=== PATIENT | male | born 1975 | race Caucasian/White ===

== ENCOUNTER 2016-10-27 20:31 | Inpatient (IN) | payer OTHER ==
[2016-10-27 20:42] VITALS: BMI 38.4
[2016-10-27] MEDS ORDERED: METOCLOPRAMIDE HCL INJECTION 10 MG/2 ML VIAL IVPB ONE (21:33)
[2016-10-27] MEDS ORDERED: SODIUM CHLORIDE 1,000 ML IV STA (21:33)
[2016-10-27] MEDS ORDERED: morphine CARPU-JECT 4 MG/1 ML DISP.SYRIN IVPUSH ONE (21:33)
[2016-10-27] MEDS ORDERED: morphine CARPU-JECT 4 MG/1 ML DISP.SYRIN ONE (21:40)
[2016-10-27] MEDS ORDERED: METOCLOPRAMIDE HCL INJECTION 10 MG/2 ML VIAL ONE (21:41)
[2016-10-27 22:35] LABS: BASOPHIL 0.5 % (0-2.0); EOSINOPHIL 0.5 % (0-4.5); MCH 30.5 pg (25.7-33.7); MCHC 33.3 g/dl (32.0-35.9); MEAN CELL VOLUME 91.7 fl (80-96); MEAN PLT VOLUME 8.7 fl (7.5-11.1); NEUTROPHILS 65.8 % (42.8-82.8); RDW 15.6 % (11.9-15.9); WHITE BLOOD COUNT 11.4 K/mm3 (4.0-10.0)
[2016-10-27 23:11] LABS: PLATELET COUNT 218 K/MM3 (134-434); PLATELET ESTIMATE ADEQUATE (NORMAL)
--- NOTE | 2016-10-27 23:11 | PDOC ---
History of Present Illness - General Chief Complaint: Pain Stated Complaint: ABD PAIN/VOMITING/BACK PAIN Time Seen by Provider: 10/27/16 21:15 History Source: Patient Exam Limitations: No Limitations - History of Present Illness Travel History: No Initial Comments: 10/27/16 23:06 40yo Male patient presented to ED c/o back pain and abd pain. Patient states he has been having ongoing back and abd pain for past couple days, that became worse on Friday 06/08 severity. Patient states recently hx of Multiple Myeloma. Associated Lt flank pain, n/v, poor appetite. Last Bm- Friday (small) . Denies fever, CP, Diff breathing, hematuria, dysuria, or any other complaints at this time. 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) HTN: Yes - Immunization History Immunization Up to Date: Yes - Psycho/Social/Smoking Cessation Hx Anxiety: No Suicidal Ideation: No Smoking Status: No Smoking History: Never smoked Have you smoked in the past 12 months: No Number of Cigarettes Smoked Daily: 0 Cigars Per Day: 0 Information on smoking cessation initiated: No Hx Alcohol Use: No Drug/Substance Use Hx: No Substance Use Type: None *Physical Exam - Vital Signs Last Vital Signs Temp Pulse Resp BP Pulse Ox 97.9 F 98 H 16 154/113 97 10/27/16 20:40 10/27/16 20:40 10/27/16 20:40 10/27/16 20:40 10/27/16 20:40 ED Treatment Course - LABORATORY CBC & Chemistry Diagram: 10/27/16 21:00 10/27/16 23:01 - ADDITIONAL ORDERS Additional order review: Laboratory Results 10/27/16 21:00 Sodium Cancelled Potassium Cancelled Chloride Cancelled Carbon Dioxide Cancelled Anion Gap Cancelled BUN Cancelled Creatinine Cancelled Creat Clearance w eGFR Cancelled Random Glucose Cancelled Calcium Cancelled Total Bilirubin Cancelled AST Cancelled ALT Cancelled Alkaline Phosphatase Cancelled Total Protein Cancelled Albumin Cancelled Total Amylase Cancelled Lipase Cancelled 10/27/16 21:00 RBC 4.59 D MCV 91.7 MCHC 33.3 RDW 15.6 MPV 8.7 Neutrophils % 65.8 D Lymphocytes % 18.9 D Monocytes % 14.3 H Eosinophils % 0.5 D Basophils % 0.5 - Medications Given in the ED: ED Medications Discontinued Medications Generic Name Dose Route Start Last Admin Trade Name Freq PRN Reason Stop Dose Admin Sodium Chloride 1,000 mls @ 1,000 mls/hr 10/27/16 21:33 10/27/16 22:05 Normal Saline - IV 10/27/16 22:32 1,000 mls/hr ASDIR STA Administration Metoclopramide HCl 10 mg 10/27/16 21:33 10/27/16 22:05 Reglan Injection - IVPB 10/27/16 21:34 10 mg ONCE ONE Administration Morphine Sulfate 4 mg 10/27/16 21:33 10/27/16 22:05 Morphine Injection - IVPUSH 10/27/16 21:34 4 mg ONCE ONE Administration *DC/Admit/Observation/Transfer Diagnosis at time of Disposition: Renal colic on left side Acute renal failure Qualifiers: Acute renal failure type: unspecified Qualified Code(s): N17.9 - Acute kidney failure, unspecified - Discharge Dispostion Condition at time of disposition: Fair Admit: Yes
[2016-10-28 00:02] LABS: ALBUMIN 3.7 g/dl (3.4-5.0); BILIRUBIN,TOTAL 0.5 mg/dL (0.2-1.0); CALCIUM 8.2 mg/dL (8.5-10.1); CREATININE 2.6 mg/dL (0.7-1.3)
[2016-10-28 00:10] LABS: AMYLASE 34 U/L (25-115)
[2016-10-28] MEDS ORDERED: CIPROFLOXACIN 200 MG/D5W 100 ML IVPB ONE (05:13)
[2016-10-28 08:17] LABS: URINE APPEARANCE CLEAR; URINE BILIRUBIN NEGATIVE (NEGATIVE); URINE BLOOD NEGATIVE (NEGATIVE); URINE COLOR LTYELLOW; URINE GLUCOSE (UA) NEGATIVE (NEGATIVE); URINE KETONE TRACE (NEGATIVE); URINE NITRITE NEGATIVE (NEGATIVE); URINE UROBILINOGEN NEGATIVE E.U./dl (0.2-1.0)
[2016-10-28 08:19] LABS: URINE LEUK ESTERASE TRACE (NEGATIVE); URINE PROTEIN 1+ (NEGATIVE)
[2016-10-28 08:21] LABS: URINE HYALINE CAST 1 /lpf; URINE MUCUS RARE; URINE RBC 2 /hpf (0-3); URINE WBC 13 /hpf (3-5)
[2016-10-28] MEDS: D5-1/2NS+20 MEQ KCL - 1,000 ML IV SCH ×2 (08:49→18:59)
[2016-10-28 08:50] LABS: BASOPHIL 0.5 % (0-2.0); EOSINOPHIL 0.6 % (0-4.5); MCH 30.5 pg (25.7-33.7); MCHC 33.3 g/dl (32.0-35.9); MEAN CELL VOLUME 91.7 fl (80-96); MEAN PLT VOLUME 7.7 fl (7.5-11.1); NEUTROPHILS 63.5 % (42.8-82.8); PLATELET COUNT 176 K/MM3 (134-434); RDW 15.4 % (11.9-15.9); WHITE BLOOD COUNT 8.4 K/mm3 (4.0-10.0)
[2016-10-28] MEDS ORDERED: HEPARIN NA (PORCINE) 5,000 UNITS/ML 1ML VIAL ONE (08:50)
[2016-10-28 09:21] LABS: ALBUMIN 3.4 g/dl (3.4-5.0); BILIRUBIN,TOTAL 0.6 mg/dL (0.2-1.0); CALCIUM 8.4 mg/dL (8.5-10.1); CREATININE 2.6 mg/dL (0.7-1.3); TOT PROT 6.8 g/dl (6.4-8.2)
[2016-10-28] MEDS: HEPARIN NA (PORCINE) 5,000 UNITS/ML 1ML VIAL SQ SCH ×2 (09:28→22:00)
--- NOTE | 2016-10-28 09:50 | HP ---
Admitting History and Physical - Admission History of Present Illness: 40yo Male patient presented to ED c/o back pain and abd pain. Patient states he has been having ongoing back and abd pain for past couple days, that became worse on Friday 06/08 severity. Patient states recently hx of Multiple Myeloma. Associated Lt flank pain, n/v, poor appetite. Last Bm- Friday (small) . Denies fever, CP, Diff breathing, hematuria, dysuria, or any other complaints at this time. - Past Medical History Cardiovascular: Yes: HTN, Hyperlipdemia Heme/Onc: Yes: Other (mutiple myeloma) - Smoking History Smoking history: Never smoked Have you smoked in the past 12 months: No Aproximately how many cigarettes per day: 0 - Alcohol/Substance Use Hx Alcohol Use: No Home Medications - Allergies Allergies/Adverse Reactions: Allergies Allergy/AdvReac Type Severity Reaction Status Date / Time No Known Allergies Allergy Verified 10/27/16 20:40 - Home Medications Home Medications: Ambulatory Orders NK [No Known Home Medication] 10/27/16 Review of Systems - Review of Systems Cardiovascular: denies: Chest Pain Respiratory: denies: SOB on Exertion Gastrointestinal: reports: Abdominal Pain Genitourinary: reports: Flank Pain Musculoskeletal: reports: Back Pain Physical Examination Vital Signs: Vital Signs Temperature 99.2 F 10/28/16 07:59 Pulse Rate 116 H 10/28/16 07:59 Respiratory Rate 19 10/28/16 07:59 Blood Pressure 130/91 10/28/16 07:59 O2 Sat by Pulse Oximetry (%) 98 10/28/16 07:59 Cardiovascular: Yes: Regular Rate and Rhythm Respiratory: Yes: Regular, CTA Bilaterally Gastrointestinal: Yes: Normal Bowel Sounds, Soft, Tenderness (mild left flank) Edema: No Labs: CBC, BMP 10/28/16 08:30 10/28/16 08:30 Problem List - Problems (1) Acute renal failure Assessment/Plan: IVF MONITOR LABS RENAL Code(s): N17.9 - ACUTE KIDNEY FAILURE, UNSPECIFIED Qualifiers: Acute renal failure type: unspecified Qualified Code(s): N17.9 - Acute kidney failure, unspecified (2) Renal colic on left side Assessment/Plan: UROLOGY CONSULT Code(s): N23 - UNSPECIFIED RENAL COLIC (3) Multiple myeloma Assessment/Plan: IN REMISSION Code(s): C90.00 - MULTIPLE MYELOMA NOT HAVING ACHIEVED REMISSION
--- NOTE | 2016-10-28 11:17 | PN ---
Progress Note (short form) - Note Progress Note: consult dictated pt with flank pain with neg ct will order r/p us heme onc consult advised
[2016-10-28] MEDS: LOSARTAN POTASSIUM 50 MG TABLET (FP) PO SCH (14:56)
--- NOTE | 2016-10-28 16:16 | CONSULT ---
Consultation: REQUESTING PROVIDER: Dr Vargas CONSULT REQUEST: We have been asked to medically evaluate this patient for (janny ). HISTORY OF PRESENT ILLNESS: 40yo Male patient presented to ED c/o back pain and abd pain. Patient states he has been having ongoing back and abd pain for past couple days, that became worse on Friday 06/08 severity. Patient states recently hx of Multiple Myeloma. Associated Lt flank pain, n/v, poor appetite. Last Bm- Friday (small). Denies fever, CP, Diff breathing, hematuria, dysuria , or any other complaints at this time. patient states that he feels better, states pain has improved. REVIEW OF SYSTEMS: CONSTITUTIONAL: Absent: fever, chills, diaphoresis, generalized weakness, malaise, loss of appetite, weight change HEENT: Absent: rhinorrhea, nasal congestion, throat pain, throat swelling, difficulty swallowing, mouth swelling, ear pain, eye pain, visual changes CARDIOVASCULAR: Absent: chest pain, syncope, palpitations, irregular heart rate, lightheadedness , peripheral edema RESPIRATORY: Absent: cough, shortness of breath, dyspnea with exertion, orthopnea, wheezing, stridor, hemoptysis GASTROINTESTINAL: Absent: abdominal pain, abdominal distension, nausea, vomiting, diarrhea, constipation, melena, hematochezia GENITOURINARY: Absent: dysuria, frequency, urgency, hesitancy, hematuria, flank pain, genital pain MUSCULOSKELETAL: Absent: myalgia, arthralgia, joint swelling, back pain, neck pain SKIN: Absent: rash, itching, pallor HEMATOLOGIC/IMMUNOLOGIC: Absent: easy bleeding, easy bruising, lymphadenopathy, frequent infections ENDOCRINE: Absent: unexplained weight gain, unexplained weight loss, heat intolerance, cold intolerance PHYSICAL EXAMINATION Vital Signs - 24 hr 10/28/16 10/28/16 10/28/16 07:59 10:30 13:09 Temperature 99.2 F Pulse Rate 93 H Pulse Rate [ 116 H 100 H Left Apical] Respiratory 19 18 Rate Blood Pressure 155/99 Blood Pressure 130/91 [Right Arm] O2 Sat by Pulse 98 97 Oximetry (%) 10/28/16 10/28/16 10/28/16 13:45 13:50 14:53 Temperature 98.1 F Pulse Rate 98 H 84 Pulse Rate [ Left Apical] Respiratory 20 20 Rate Blood Pressure 140/100 160/104 Blood Pressure [Right Arm] O2 Sat by Pulse 97 Oximetry (%) GENERAL: Awake, alert, and fully oriented, in no acute distress. HEAD: Normal with no signs of trauma. EYES: Pupils equal, round and reactive to light, EARS, NOSE, THROAT: Ears normal, nares patent, NECK: Normal range of motion, LUNGS: Breath sounds equal, clear to auscultation bilaterally. No wheezes, and no crackles. No accessory muscle use. HEART: s1s2 normal ABDOMEN: Soft, nontender, not distended, normoactive bowel sounds, no guarding, no rebound, MUSCULOSKELETAL: Normal range of motion at all joints. No bony deformities or tenderness. No CVA tenderness. LOWER EXTREMITIES: 2+ pulses, warm, well-perfused. No calf tenderness. No peripheral edema. Laboratory Results - last 24 hr 10/28/16 10/28/16 10/28/16 08:00 08:30 08:30 WBC 8.4 RBC 4.16 Hgb 12.7 Hct 38.2 MCV 91.7 MCHC 33.3 RDW 15.4 Plt Count 176 MPV 7.7 D Neutrophils % 63.5 Lymphocytes % 18.1 Monocytes % 17.3 H Eosinophils % 0.6 Basophils % 0.5 Sodium 139 Potassium 4.0 Chloride 104 Carbon Dioxide 27 Anion Gap 8 BUN 18 Creatinine 2.6 H Creat Clearance w eGFR 27.34 Random Glucose 105 Calcium 8.4 L Total Bilirubin 0.6 AST 12 L ALT 32 Alkaline Phosphatase 97 Total Protein 6.8 Albumin 3.4 Urine Color Ltyellow Urine Appearance Clear Urine pH 6.0 Ur Specific [place] 1.016 Urine Protein 1+ H Urine Glucose (UA) Negative Urine Ketones Trace H Urine Blood Negative Urine Nitrite Negative Urine Bilirubin Negative Urine Urobilinogen Negative Ur Leukocyte Esterase Trace H Urine RBC 2 Urine WBC 13 Ur Epithelial Cells Rare Hyaline Casts 1 Urine Mucus Rare Active Medications Generic Name Dose Route Start Last Admin Trade Name Freq PRN Reason Stop Dose Admin Acetaminophen 650 mg 10/28/16 08:26 Tylenol - PO Q4H PRN FEVER OR PAIN Heparin Sodium (Porcine) 5,000 unit 10/28/16 10:00 10/28/16 09:28 Heparin - SQ 5,000 unit BID MARRY Administration Potassium Chloride/Dextrose/Sod Cl 1,000 mls @ 125 mls/hr 10/28/16 08:30 08:49 D5-1/2ns+20 Meq Kcl - IV 125 mls/hr ASDIR MARRY Administration Losartan Potassium 50 mg 10/28/16 14:30 10/28/16 14:56 Cozaar - PO 50 mg DAILY MARRY Administration CT shows : distal uretric stone 5mm ASSESSMENT/PLAN: impression ARF left renal colic h/o multiple myeloma Plan continue with IV fluid repeat renal function inmorning follow ua, urine electrolyte and urine creatnine agree with antibiotics follow urine culture urology consult Dispo: We will continue to follow the patient. Thank you for this consultative opportunity. Visit type - Emergency Visit Emergency Visit: Yes ED Registration Date: 10/28/16 Care time: The patient presented to the Emergency Department on the above date and was hospitalized for further evaluation of their emergent condition. - New Patient This patient is new to me today: Yes Date on this admission: 10/28/16 - Critical Care Critical Care patient: No
--- NOTE | 2016-10-28 17:32 | PN ---
Teaching Attending Note Name of Resident: Clyde Ho (Nephrology) ATTENDING PHYSICIAN STATEMENT I saw and evaluated the patient. I reviewed the resident's note and discussed the case with the resident. I agree with the resident's findings and plan as documented. Pt is a 40 year old male with pmhx of multiple myeloma who presents to the ER with left sided flank pain, nausea and vomiting. He denies fevers or chills. He was found to have a ureteral stone and to be in renal failure. pmhx multiple myeloma with bone marrow transplant NKDA socail negative family hx non contrib ros flank pain cardio s1s2 reg pulm clear GI soft, obese neg cva tendernes ext neg edema Current Medications Generic Name Dose Route Start Last Admin Trade Name Freq PRN Reason Stop Dose Admin Acetaminophen 650 mg 10/28/16 08:26 Tylenol - PO Q4H PRN FEVER OR PAIN Heparin Sodium (Porcine) 5,000 unit 10/28/16 10:00 10/28/16 09:28 Heparin - SQ 5,000 unit BID MARRY Administration Potassium Chloride/Dextrose/Sod Cl 1,000 mls @ 125 mls/hr 10/28/16 08:30 08:49 D5-1/2ns+20 Meq Kcl - IV 125 mls/hr ASDIR MARRY Administration Losartan Potassium 50 mg 10/28/16 14:30 10/28/16 14:56 Cozaar - PO 50 mg DAILY MARRY Administration Impression 1. nephrolithiasis 2. ZACH 3. HTN 4. UTI Plan - cont with fluids - repeat labs in am - follow up cultures - will hold cozaar if renal function is worse - check ua, stummel selector and sodium - will follow - reviewed case with resident and reviewed note Dr Patrick
[2016-10-28] MEDS: ACETAMINOPHEN 325 MG TABLET (FP) PO PRN (20:45)
[2016-10-28 22:03] LABS: URINE APPEARANCE CLEAR; URINE BILIRUBIN NEGATIVE (NEGATIVE); URINE BLOOD NEGATIVE (NEGATIVE); URINE COLOR STRAW; URINE GLUCOSE (UA) NEGATIVE (NEGATIVE); URINE KETONE NEGATIVE (NEGATIVE); URINE LEUK ESTERASE NEGATIVE (NEGATIVE); URINE NITRITE NEGATIVE (NEGATIVE); URINE PROTEIN NEGATIVE (NEGATIVE); URINE UROBILINOGEN NEGATIVE E.U./dl (0.2-1.0)
[2016-10-29] MEDS: ACETAMINOPHEN 325 MG TABLET (FP) PO PRN (01:07)
[2016-10-29 07:51] LABS: BASOPHIL 0.5 % (0-2.0); EOSINOPHIL 1.5 % (0-4.5); MCH 31.1 pg (25.7-33.7); MEAN CELL VOLUME 91.4 fl (80-96); MEAN PLT VOLUME 7.8 fl (7.5-11.1); NEUTROPHILS 59.5 % (42.8-82.8); PLATELET COUNT 184 K/MM3 (134-434); RDW 15.1 % (11.9-15.9); WHITE BLOOD COUNT 6.5 K/mm3 (4.0-10.0)
[2016-10-29] MEDS ORDERED: amLODIPine BESYLATE 10 MG TABLET (FP) PO ONE (08:28)
[2016-10-29] MEDS: D5-1/2NS+20 MEQ KCL - 1,000 ML IV SCH ×2 (08:38→11:00)
--- NOTE | 2016-10-29 08:53 | PN ---
Progress Note, Physician History of Present Illness: feels better - Current Medication List Current Medications: Active Medications Acetaminophen (Tylenol -) 650 mg PO Q4H PRN PRN Reason: FEVER OR PAIN Last Admin: 10/29/16 01:07 Dose: 650 mg Heparin Sodium (Porcine) (Heparin -) 5,000 unit SQ BID [facility] Last Admin: 10/28/16 22:00 Dose: 5,000 unit Potassium Chloride/Dextrose/Sod Cl (D5-1/2ns+20 Meq Kcl -) 1,000 mls @ 125 mls/ hr IV ASDIR [facility] Last Admin: 10/29/16 08:38 Dose: Not Given Losartan Potassium (Cozaar -) 50 mg PO DAILY [facility] Last Admin: 10/28/16 14:56 Dose: 50 mg - Objective Vital Signs: Vital Signs Temperature 99.2 F 10/29/16 06:00 Pulse Rate 96 H 10/29/16 06:00 Respiratory Rate 20 10/29/16 06:00 Blood Pressure 144/100 10/29/16 06:00 O2 Sat by Pulse Oximetry (%) 97 10/28/16 21:00 Cardiovascular: Yes: Regular Rate and Rhythm Respiratory: Yes: Regular, CTA Bilaterally Gastrointestinal: Yes: Normal Bowel Sounds, Soft Labs: CBC, BMP 10/29/16 06:45 Problem List - Problems (1) Acute renal failure Assessment/Plan: IVF MONITOR LABS RENAL HOLD ARB Code(s): N17.9 - ACUTE KIDNEY FAILURE, UNSPECIFIED Qualifiers: Acute renal failure type: unspecified Qualified Code(s): N17.9 - Acute kidney failure, unspecified (2) Renal colic on left side Assessment/Plan: UROLOGY CONSULT Code(s): N23 - UNSPECIFIED RENAL COLIC (3) Multiple myeloma Assessment/Plan: IN REMISSION Code(s): C90.00 - MULTIPLE MYELOMA NOT HAVING ACHIEVED REMISSION (4) HTN (hypertension) Assessment/Plan: HOLD ARB NORVASC Code(s): I10 - ESSENTIAL (PRIMARY) HYPERTENSION
[2016-10-29 09:00] LABS: CALCIUM 8.4 mg/dL (8.5-10.1); CREATININE 2.6 mg/dL (0.7-1.3)
[2016-10-29] MEDS: HEPARIN NA (PORCINE) 5,000 UNITS/ML 1ML VIAL SQ SCH ×2 (09:33→22:32)
[2016-10-29] MEDS: LOSARTAN POTASSIUM 50 MG TABLET (FP) PO SCH (09:33)
[2016-10-29] MEDS ORDERED: morphine CARPU-JECT 2 MG/1 ML DISP.SYRIN IM PRN (10:30)
--- NOTE | 2016-10-29 13:35 | CONSULT ---
Consultation: REQUESTING PROVIDER: CONSULT REQUEST: We have been asked to medically evaluate this patient for (janny) . HISTORY OF PRESENT ILLNESS: patient states that he again has pain in left lumbar area radiating to down, and was unable to sleep last night because of pain REVIEW OF SYSTEMS: CONSTITUTIONAL: Absent: fever, chills, diaphoresis, generalized weakness, HEENT: Absent: rhinorrhea, nasal congestion, throat pain, throat swelling, difficulty swallowing, mouth swelling, ear pain, eye pain, visual changes CARDIOVASCULAR: Absent: chest pain, syncope, palpitations, irregular heart rate, lightheadedness , peripheral edema RESPIRATORY: Absent: cough, shortness of breath, dyspnea with exertion, orthopnea, wheezing, stridor, hemoptysis GASTROINTESTINAL: Absent: abdominal pain, abdominal distension, nausea, vomiting, diarrhea, constipation, GENITOURINARY: Absent: dysuria, frequency, urgency, hesitancy, hematuria, flank pain, genital pain MUSCULOSKELETAL: Absent: myalgia, arthralgia, joint swelling, back pain, neck pain SKIN: Absent: rash, itching, pallor PHYSICAL EXAMINATION Vital Signs - 24 hr 10/28/16 10/28/16 10/28/16 13:45 13:50 14:53 Temperature 98.1 F Pulse Rate 98 H 84 Respiratory 20 20 Rate Blood Pressure 140/100 160/104 O2 Sat by Pulse 97 Oximetry (%) 10/28/16 10/28/16 10/28/16 18:04 20:09 21:00 Temperature 98.0 F Pulse Rate 94 H 92 H Respiratory 20 20 20 Rate Blood Pressure 152/103 150/92 O2 Sat by Pulse 97 Oximetry (%) 10/28/16 10/29/16 10/29/16 22:00 04:00 06:00 Temperature 99.1 F 99.2 F Pulse Rate 88 104 H 96 H Respiratory 20 22 20 Rate Blood Pressure 143/96 152/108 144/100 O2 Sat by Pulse Oximetry (%) 10/29/16 10/29/16 09:00 11:03 Temperature Pulse Rate 89 Respiratory 20 Rate Blood Pressure 140/89 O2 Sat by Pulse 95 Oximetry (%) GENERAL: Awake, alert, and fully oriented, in no acute distress. HEAD: Normal with no signs of trauma. EYES: Pupils equal, round and reactive to light, EARS, NOSE, THROAT: Ears normal, nares patent, NECK: Normal range of motion, LUNGS: Breath sounds equal, clear to auscultation bilaterally. No wheezes, and no crackles. No accessory muscle use. HEART: s1s2 normal ABDOMEN: Soft, nontender, not distended, normoactive bowel sounds, no guarding, no rebound, MUSCULOSKELETAL: Normal range of motion at all joints. No bony deformities or tenderness. No CVA tenderness. LOWER EXTREMITIES: 2+ pulses, warm, well-perfused. No calf tenderness. No peripheral edema. Laboratory Results - last 24 hr 10/28/16 10/28/16 10/29/16 21:00 21:00 06:45 WBC 6.5 RBC 4.02 Hgb 12.5 Hct 36.7 MCV 91.4 MCHC 34.0 RDW 15.1 Plt Count 184 MPV 7.8 Neutrophils % 59.5 Lymphocytes % 22.7 D Monocytes % 15.8 H Eosinophils % 1.5 D Basophils % 0.5 Sodium Potassium Chloride Carbon Dioxide Anion Gap BUN Creatinine Random Glucose Calcium Urine Color Straw Urine Appearance Clear Urine pH 7.0 Ur Specific [place] 1.010 Urine Protein Negative Urine Glucose (UA) Negative Urine Ketones Negative Urine Blood Negative Urine Nitrite Negative Urine Bilirubin Negative Urine Urobilinogen Negative Ur Leukocyte Esterase Negative Ur Random Sodium 111 Ur Random Potassium 10.7 Ur Random Chloride 108 Urine Creatinine 100.0 10/29/16 06:45 WBC RBC Hgb Hct MCV MCHC RDW Plt Count MPV Neutrophils % Lymphocytes % Monocytes % Eosinophils % Basophils % Sodium 141 Potassium 4.2 Chloride 107 Carbon Dioxide 24 Anion Gap 10 BUN 15 Creatinine 2.6 H Random Glucose 100 Calcium 8.4 L Urine Color Urine Appearance Urine pH Ur Specific [place] Urine Protein Urine Glucose (UA) Urine Ketones Urine Blood Urine Nitrite Urine Bilirubin Urine Urobilinogen Ur Leukocyte Esterase Ur Random Sodium Ur Random Potassium Ur Random Chloride Urine Creatinine Active Medications Generic Name Dose Route Start Last Admin Trade Name Freq PRN Reason Stop Dose Admin Acetaminophen 650 mg 10/28/16 08:26 10/29/16 01:07 Tylenol - PO 650 mg Q4H PRN Administration FEVER OR PAIN Amlodipine Besylate 10 mg 10/30/16 10:00 Norvasc - PO DAILY [facility] Heparin Sodium (Porcine) 5,000 unit 10/28/16 10:00 10/29/16 09:33 Heparin - SQ Not Given BID [facility] Potassium Chloride/Dextrose/Sod Cl 1,000 mls @ 125 mls/hr 10/28/16 08:30 11:00 D5-1/2ns+20 Meq Kcl - IV 125 mls/hr ASDIR MARRY Administration Losartan Potassium 50 mg 10/28/16 14:30 10/29/16 09:33 Cozaar - PO Not Given DAILY MARRY Morphine Sulfate 1 mg 10/29/16 10:30 Morphine Injection - IM Q6H PRN PAIN Microbiology 10/28/16 08:00 Urine - Urine Clean Catch Urine Culture - Final NO GROWTH OBTAINED 10/28/16 06:25 Blood - Peripheral Venous Blood Culture - Preliminary NO GROWTH OBTAINED AFTER 24 HOURS, INCUBATION TO CONTINUE FOR 4 DAYS. 10/28/16 06:25 Blood - Peripheral Venous Blood Culture - Preliminary NO GROWTH OBTAINED AFTER 24 HOURS, INCUBATION TO CONTINUE FOR 4 DAYS. ASSESSMENT/PLAN: Impression ARF left renal colic h/o multiple myeloma Plan continue with IV fluid repeat renal function in morning hold nephrotoxic drugs on norvasc for BP follow uric acid urine electrolyte and ua reviewed. urine culture no growth urology consult appreciated called his pcp office to get his last creatinine, but he has not seen pcp from last one year and they don't have his creatnine level in their medical record. Dispo: We will continue to follow the patient. Thank you for this consultative opportunity. Visit type - Emergency Visit Emergency Visit: Yes ED Registration Date: 10/28/16 Care time: The patient presented to the Emergency Department on the above date and was hospitalized for further evaluation of their emergent condition. - New Patient This patient is new to me today: No - Critical Care Critical Care patient: No
--- NOTE | 2016-10-29 17:14 | PN ---
Teaching Attending Note Name of Resident: Clyde Ho (Nephrology) ATTENDING PHYSICIAN STATEMENT I saw and evaluated the patient. I reviewed the resident's note and discussed the case with the resident. I agree with the resident's findings and plan as documented. Current Medications Generic Name Dose Route Start Last Admin Trade Name Freq PRN Reason Stop Dose Admin Acetaminophen 650 mg 10/28/16 08:26 10/29/16 01:07 Tylenol - PO 650 mg Q4H PRN Administration FEVER OR PAIN Amlodipine Besylate 10 mg 10/30/16 10:00 Norvasc - PO DAILY MARRY Heparin Sodium (Porcine) 5,000 unit 10/28/16 10:00 10/29/16 09:33 Heparin - SQ Not Given BID MARRY Potassium Chloride/Dextrose/Sod Cl 1,000 mls @ 125 mls/hr 10/28/16 08:30 11:00 D5-1/2ns+20 Meq Kcl - IV 125 mls/hr ASDIR MARRY Administration Losartan Potassium 50 mg 10/28/16 14:30 10/29/16 09:33 Cozaar - PO Not Given DAILY MARRY Morphine Sulfate 1 mg 10/29/16 10:30 Morphine Injection - IM Q6H PRN PAIN Laboratory Tests 10/29/16 09:45 Stone Size Pending Stone Weight Pending Stone Color Pending cardio s1s2 reg pulm clear GI soft, obese neg cva tenderness ext neg edema Impression 1. nephrolithiasis 2. ZACH 3. HTN 4. UTI Plan - called pts oncology office where he is followed by a PA. She says his creatinine runs about 1.6 to 2 at baseline. He has never seen a tank storage supervisor - cont fluids and repeat labs in am - pt did pass the stone, follow up the analysis - will follow - reviewed case with resident and reviewed note Dr Patrick
[2016-10-29] MEDS ORDERED: SODIUM CHLORIDE 0.45% 1,000 ML IV SCH (17:30)
[2016-10-29 17:42] LABS: CALCIUM 8.5 mg/dL (8.5-10.1); CREATININE 2.1 mg/dL (0.7-1.3)
--- NOTE | 2016-10-29 23:18 | EKG ---
Test Reason : Blood Pressure : / mmHG Vent. Rate : 098 BPM Atrial Rate : 098 BPM P-R Int : 156 ms QRS Dur : 092 ms QT Int : 346 ms P-R-T Axes : 055 -13 -07 degrees QTc Int : 441 ms NORMAL SINUS RHYTHM MINIMAL VOLTAGE CRITERIA FOR LVH, MAY BE NORMAL VARIANT BORDERLINE ECG WHEN COMPARED WITH ECG OF 28-OCT-2016 11:14, NO SIGNIFICANT CHANGE WAS FOUND Confirmed by XUAN BELTRÁN, DIMITRIS ([id number]) on 10/29/2016 11:18:26 PM Referred By: BETH BANEGAS Confirmed By:DIMITRIS GOVEA MD
[2016-10-30 07:31] LABS: CALCIUM 8.5 mg/dL (8.5-10.1); CREATININE 1.8 mg/dL (0.7-1.3); URIC ACID 6.1 mg/dL (2.6-7.2)
--- NOTE | 2016-10-30 09:00 | PATH ---
Surgical Pathology Report Patient Name: HALLEY JOHN Med. Rec. #: [id number] /Age/Gender: 1975 (Age: 40) / M Account: [id number] Location: [address] [place] [address] Taken: 10/29/2016 Received: 10/29/2016 Reported: 10/30/2016 Physicians: Axel Vargas M.D. Specimen(s) Received RENAL STONE ? Clinical History Renal stone Final Diagnosis CALCULI, EXTRACTION: CALCULI SUBMITTED FOR CHEMICAL ANALYSIS (gross only). Electronically Signed Estuardo Ram M.D. Gross Description Received fresh, labeled with the patient's name and indicated on the requisition to be a renal stone, is a 0.5 cm greatest dimension machado-white, irregular calculus which is sent for chemical analysis. 10/29/201610/29/2016
[2016-10-30] MEDS: HEPARIN NA (PORCINE) 5,000 UNITS/ML 1ML VIAL SQ SCH (09:08)
--- NOTE | 2016-10-30 09:51 | CONSULT ---
Consultation: REQUESTING PROVIDER: CONSULT REQUEST: We have been asked to medically evaluate this patient for (janny on ckd). HISTORY OF PRESENT ILLNESS: Feels better, denies pain, nausea, vomiting REVIEW OF SYSTEMS: CONSTITUTIONAL: Absent: fever, chills, diaphoresis, generalized weakness, HEENT: Absent: rhinorrhea, nasal congestion, throat pain, throat swelling, difficulty swallowing, mouth swelling, ear pain, eye pain, visual changes CARDIOVASCULAR: Absent: chest pain, syncope, palpitations, irregular heart rate, lightheadedness , peripheral edema RESPIRATORY: Absent: cough, shortness of breath, dyspnea with exertion, orthopnea, wheezing, stridor, hemoptysis GASTROINTESTINAL: Absent: abdominal pain, abdominal distension, nausea, vomiting, diarrhea, constipation, GENITOURINARY: Absent: dysuria, frequency, urgency, hesitancy, hematuria, flank pain, genital pain MUSCULOSKELETAL: Absent: myalgia, arthralgia, joint swelling, back pain, neck pain SKIN: Absent: rash, itching, pallor PHYSICAL EXAMINATION Vital Signs - 24 hr 10/29/16 10/29/16 10/29/16 11:03 14:25 18:59 Temperature 98.4 F 98.8 F Pulse Rate 89 92 H 84 Respiratory 20 20 20 Rate Blood Pressure 140/89 143/93 136/95 10/30/16 10/30/16 00:00 06:00 Temperature 98.4 F 98.5 F Pulse Rate 82 82 Respiratory 20 20 Rate Blood Pressure 138/88 131/81 GENERAL: Awake, alert, and fully oriented, in no acute distress. HEAD: Normal with no signs of trauma. EYES: Pupils equal, round and reactive to light, EARS, NOSE, THROAT: Ears normal, nares patent, NECK: Normal range of motion, LUNGS: Breath sounds equal, clear to auscultation bilaterally. No wheezes, and no crackles. No accessory muscle use. HEART: s1s2 normal ABDOMEN: Soft, nontender, not distended, normoactive bowel sounds, no guarding, no rebound, MUSCULOSKELETAL: Normal range of motion at all joints. No bony deformities or tenderness. No CVA tenderness. LOWER EXTREMITIES: 2+ pulses, warm, well-perfused. No calf tenderness. No peripheral edema. Laboratory Results - last 24 hr 10/29/16 10/30/16 16:55 06:30 Sodium 142 142 Potassium 4.5 4.5 Chloride 107 108 H Carbon Dioxide 27 27 Anion Gap 8 7 L BUN 13 17 D Creatinine 2.1 H 1.8 H Random Glucose 95 88 Uric Acid 6.1 Calcium 8.5 8.5 Active Medications Generic Name Dose Route Start Last Admin Trade Name Freq PRN Reason Stop Dose Admin Acetaminophen 650 mg 10/28/16 08:26 10/29/16 01:07 Tylenol - PO 650 mg Q4H PRN Administration FEVER OR PAIN Amlodipine Besylate 10 mg 10/30/16 10:00 10/30/16 09:07 Norvasc - PO 10 mg DAILY MARRY Administration Heparin Sodium (Porcine) 5,000 unit 10/28/16 10:00 10/30/16 09:08 Heparin - SQ Not Given BID MARRY Sodium Chloride 1,000 mls @ 100 mls/hr 10/29/16 17:30 10/29/16 17:23 1/2 Normal Saline IV 100 mls/hr ASDIR MARRY Administration Morphine Sulfate 1 mg 10/29/16 10:30 Morphine Injection - IM Q6H PRN PAIN ASSESSMENT/PLAN: Impression ARF left renal colic h/o multiple myeloma Plan patient had passed stone, stone reports pending creatnine decreased from 2.6 to 1.8, back to his base line drink plenty of water on norvasc for BP called pts oncology office where he is followed by a PA. She says his creatinine runs about 1.6 to 2 at baseline. 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 Thank you for this consultative opportunity. Visit type - Emergency Visit Emergency Visit: Yes ED Registration Date: 10/28/16 Care time: The patient presented to the Emergency Department on the above date and was hospitalized for further evaluation of their emergent condition. - New Patient This patient is new to me today: No - Critical Care Critical Care patient: No
[2016-10-30] MEDS ORDERED: amLODIPine BESYLATE 10 MG TABLET (FP) PO SCH (10:00)
--- NOTE | 2016-10-30 11:40 | PN ---
Teaching Attending Note Name of Resident: Clyde Ho (Nephrology) ATTENDING PHYSICIAN STATEMENT I saw and evaluated the patient. I reviewed the resident's note and discussed the case with the resident. I agree with the resident's findings and plan as documented. Current Medications Generic Name Dose Route Start Last Admin Trade Name Freq PRN Reason Stop Dose Admin Acetaminophen 650 mg 10/28/16 08:26 10/29/16 01:07 Tylenol - PO 650 mg Q4H PRN Administration FEVER OR PAIN Amlodipine Besylate 10 mg 10/30/16 10:00 10/30/16 09:07 Norvasc - PO 10 mg DAILY MARRY Administration Heparin Sodium (Porcine) 5,000 unit 10/28/16 10:00 10/30/16 09:08 Heparin - SQ Not Given BID MARRY Sodium Chloride 1,000 mls @ 100 mls/hr 10/29/16 17:30 10/29/16 17:23 1/2 Normal Saline IV 100 mls/hr ASDIR MARRY Administration Morphine Sulfate 1 mg 10/29/16 10:30 Morphine Injection - IM Q6H PRN PAIN Laboratory Tests 10/28/16 10/29/16 21:00 09:45 Urine Color Straw Urine Appearance Clear Urine pH 7.0 Urine Protein Negative Urine Glucose (UA) Negative Urine Ketones Negative Urine Blood Negative Urine Nitrite Negative Urine Bilirubin Negative Urine Urobilinogen Negative Ur Leukocyte Esterase Negative Stone Size Pending Stone Weight Pending Stone Color Pending cardio s1s2 reg pulm clear GI soft, obese neg cva tenderness ext neg edema Impression 1. nephrolithiasis 2. ZACH 3. HTN 4. UTI Plan - renal function is improved - can follow as outpt - discussed low sodium diet and fluid intake - will need to follow stone pathology - renal function is back to baseline - will follow - reviewed case with resident and reviewed note
[2016-10-30 14:59] VITALS: BP 138/78; PULSE 90; TEMP 98.2
--- NOTE | 2016-11-05 17:52 | EKG ---
Test Reason : Blood Pressure : / mmHG Vent. Rate : 100 BPM Atrial Rate : 100 BPM P-R Int : 162 ms QRS Dur : 086 ms QT Int : 348 ms P-R-T Axes : 053 -17 -08 degrees QTc Int : 448 ms NORMAL SINUS RHYTHM MODERATE VOLTAGE CRITERIA FOR LVH, MAY BE NORMAL VARIANT BORDERLINE ECG WHEN COMPARED WITH ECG OF 19-SEP-2011 09:20, NO SIGNIFICANT CHANGE WAS FOUND Confirmed by DIMITRIS GOVEA MD ([id number]) on 11/05/2016 5:52:09 PM Referred By: Confirmed By:DIMITRIS GOVEA MD
[2016-11-06 12:20] LABS: COLOR ORANGE; SIZE 5X3X2; URIC ACID 100
== END 2016-10-30 16:21 | disposition home or self-care (01) | DRG 460 ==
LOC: JER 20:31 → JERBED 10-28 06:33 → J5S 10-28 13:50
PROVIDERS: ADMIT Internal Medicine; ATTEND Internal Medicine
DX: N17.9 Acute kidney failure, unspecified (principal); I10 Essential (primary) hypertension; E78.5 Hyperlipidemia, unspecified; N39.0 Urinary tract infection, site not specified; N20.0 Calculus of kidney; Z85.79 Personal history of other malignant neoplasms of lymphoid, hematopoietic and related tissues
CPT/HCPCS: 36415; 74000-TC; 74176-TC; 76775-TC; 80048; 80053; 81003; 81015; 82150; 82360; 82436; 82570; 83690; 84133; 84300; 84550; 85025; 87040; 87086; 88300-TC; 93005; 93010; 99285-25; J1644

== ENCOUNTER 2018-06-23 12:59 | Emergency (ER) | payer OTHER ==
[2018-06-23 13:19] VITALS: TEMP 98.5; BMI 37.5
--- NOTE | 2018-06-23 14:24 | PDOC ---
Attending Attestation - Resident Resident Name: Ramsey Salter - ED Attending Attestation I have performed the following: I have examined & evaluated the patient, The case was reviewed & discussed with the resident, I agree w/resident's findings & plan, Exceptions are as noted
--- NOTE | 2018-06-23 14:31 | PDOC ---
History of Present Illness - General Chief Complaint: Lightheaded Stated Complaint: DIZZY,HTN, HAVENT TAKEN MY MEDS Time Seen by Provider: 06/23/18 13:06 - History of Present Illness Initial Comments: 06/23/18 14:26 42 yo M with h/o HTN, and Multiple Myeloma who p/w pre-syncope. 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 Denies LOC. No identifiable triggers or alleviators. Patient states that episode is similar to episode of lightheadedness in past when "blood pressure was high," last occurring 2 months ago. Patient non adherent to Losartan 50 mg daily for past 2- 3 weeks. Patient ran out of medication. Currently no complaints. Patient denies tinnitus, hearing loss, vision change, REYES, vertigo, N/V, F,C, CP , cough, PND, orthopnea, leg pain/swelling, SOB, urinary complaints, abdominal pain, diarrhea, constipation, lightheadedness, weakness, sensory changes. PMHx: as noted above. Denies h/o PE, DVT, IL, CVA. ROS: as noted SHx: Social Etoh. Denies tobacco, or IVDA. Allergies: NKDA PMD: Ney Lerner. 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 No weakness. HEAD, EYES, EARS, NOSE AND THROAT: No change in vision. No ear pain or discharge. No sore throat. CARDIOVASCULAR: No chest pain or shortness of breath RESPIRATORY: No cough, wheezing, or hemoptysis. GASTROINTESTINAL: No nausea, vomiting, diarrhea or constipation. GENITOURINARY: No dysuria, frequency, or change in urination. MUSCULOSKELETAL: No joint or muscle swelling or pain. No neck or back pain. SKIN: No rash NEUROLOGIC: No headache, vertigo, loss of consciousness, or change in strength/ sensation. ENDOCRINE: No increased thirst. No abnormal weight change HEMATOLOGIC/LYMPHATIC: No anemia, easy bleeding, or history of blood clots. ALLERGIC/IMMUNOLOGIC: No hives or skin allergy. *Physical Exam - Vital Signs Last Vital Signs Temp Pulse Resp BP Pulse Ox 98.5 F 69 16 174/94 H 100 06/23/18 13:00 06/23/18 13:00 06/23/18 13:00 06/23/18 13:00 06/23/18 13:00 - Physical Exam Comments: 06/23/18 14:30 GENERAL: Awake, alert, and fully oriented, in no acute distress HEAD: No signs of trauma, normocephalic, atraumatic EYES: PERRLA, EOMI, sclera anicteric, conjunctiva clear ENT: Auricles normal inspection, hearing grossly normal, nares patent, oropharynx clear without exudates. Moist mucosa NECK: Normal ROM, supple, no lymphadenopathy, JVD, or masses LUNGS: No distress, speaks full sentences, clear to auscultation bilaterally HEART: Regular rate and rhythm, normal S1 and S2, no murmurs, rubs or gallops, peripheral pulses normal and equal bilaterally. EXTREMITIES : Normal inspection, Normal range of motion, no edema. No clubbing or cyanosis. NEUROLOGICAL:Neg dysmetria on FTN, or HTS. Normal ERIKA. Absent nystagmus. Cranial nerves II through XII grossly intact. Normal speech, normal gait, no focal sensorimotor deficits SKIN: Warm, Dry, normal turgor, no rashes or lesions noted ED Treatment Course - LABORATORY CBC & Chemistry Diagram: 06/23/18 14:37 06/23/18 14:37 Medical Decision Making - Medical Decision Making 06/23/18 14:30 42 yo M with h/o HTN, and Multiple Myeloma who p/w pre-syncope. BP 174/94, vitals otherwise wnl, AF, A&Ox3. ACS/IL r/o. No evidence of end organ dysfunction, or clinical s/s to suggest HTN emergency. Absent neuro deficits. Low suspicion CVA/TIA.Will assess for cardiac dysarythmia, hypoglycemia, hypovolemia, electrolyte abnml, metabolic derangements, acid base disturbances, or infection. Ed Course: CBC, CMP, Cardiac Pr. EKG, UA Losartan 50 mg 06/23/18 15:22 CBC, CMP: Unremarkable Trop: Neg UA: Neg SBP improved to 140. 06/23/18 15:26 Sent Losartan to pharmacy. Patient stable for d/c with return precautions. Advised to f/u with PMD. *DC/Admit/Observation/Transfer Diagnosis at time of Disposition: Dizziness - Discharge Dispostion Condition at time of disposition: Stable - Prescriptions Prescriptions: Losartan Potassium 50 mg PO DAILY 7 Days #7 tablet MDD 1 tab - Referrals Referrals: Ney Lerner MD [Primary Care Provider] - - Patient Instructions Printed Discharge Instructions: DI for Syncope in Adults (Fainting) Additional Instructions: Please return to the emergency department with any new or worsening symptoms or concerns. Please follow up with your primary care physician within 72 hours. Please take Losartan daily for a week. - Post Discharge Activity - Attestations Physician Attestion: 06/23/18 14:32 I attest to the information provided in this note.
[2018-06-23] MEDS ORDERED: LOSARTAN POTASSIUM 50 MG TABLET (FP) PO ONE (14:34)
[2018-06-23 14:52] LABS: PH,URINE 5.5 (4.5-8); URINE APPEARANCE Clear; URINE BILIRUBIN Negative (NEGATIVE); URINE COLOR Amber; URINE GLUCOSE (UA) Negative (NEGATIVE); URINE KETONE Negative (NEGATIVE); URINE LEUK ESTERASE Negative (NEGATIVE); URINE NITRITE Negative (NEGATIVE); URINE UROBILINOGEN 0.2 (0.2-1.0)
[2018-06-23 14:55] LABS: URINE PROTEIN 2+ (NEGATIVE)
[2018-06-23 15:00] LABS: BASO % 0.5 % (0-2.0); EOS % 2.3 % (0-4.5); HEMOGLOBIN 13.5 GM/dl (11.7-16.9); LYMPH % 28.4 % (8-40); MCH 28.8 pg (25.7-33.7); MCHC 31.4 g/dl (32.0-35.9); MEAN CELL VOLUME 91.7 fl (80-96); MEAN PLT VOLUME 8.5 fl (7.5-11.1); MONO % 13.9 % (3.8-10.2); NEUT % 54.9 % (42.8-82.8); PLATELET COUNT 226 K/MM3 (134-434); RBC 4.69 M/mm3 (4.00-5.60); RDW 15.4 % (11.9-15.9); WHITE BLOOD COUNT 4.9 K/mm3 (4.0-10.8)
[2018-06-23 15:10] LABS: ALBUMIN 3.8 g/dl (3.5-5.0); ALK PHOS 97 U/L (32-92); ANION GAP 5 MMOL/L (8-16); BILIRUBIN,TOTAL 0.7 mg/dl (0.2-1.0); BLOOD UREA NITROGEN 18 mg/dl (7-18); CALCIUM 8.6 mg/dl (8.4-10.2); CHLORIDE 105 mmol/L (98-107); CO2 26 mmol/L (22-28); CREATININE 1.6 mg/dl (0.6-1.3); GLUCOSE,RANDOM 107 mg/dl (74-106); INR 1.07 (0.82-1.09); SGOT/AST 19 U/L (10-42); SGPT/ALT 18 U/L (10-40); SODIUM 136 mmol/L (136-145); TOT PROT 7.2 g/dl (6.4-8.3)
[2018-06-23 15:30] VITALS: BP 143/90; PULSE 63
[2018-06-23 15:37] LABS: URINE RBC 0-1 /hpf (0-3); URINE WBC 0-2 (0-2)
--- NOTE | 2018-06-24 11:43 | EKG ---
Test Reason : Blood Pressure : / mmHG Vent. Rate : 077 BPM Atrial Rate : 077 BPM P-R Int : 146 ms QRS Dur : 092 ms QT Int : 396 ms P-R-T Axes : 044 -04 012 degrees QTc Int : 448 ms NORMAL SINUS RHYTHM MINIMAL VOLTAGE CRITERIA FOR LVH, MAY BE NORMAL VARIANT BORDERLINE ECG WHEN COMPARED WITH ECG OF 29-OCT-2016 08:48, NO SIGNIFICANT CHANGE WAS FOUND Confirmed by PHYLLIS BELTRÁN, KARLOS ([id number]) on 06/24/2018 11:43:00 AM Referred By: GÓMEZ BULLARD Confirmed By:KARLOS FERGUSON MD
== END 2018-06-23 15:41 | disposition home or self-care (01) ==
LOC: FER 12:59
DX: R42 Dizziness and giddiness (principal); I10 Essential (primary) hypertension; C90.00 Multiple myeloma not having achieved remission
CPT/HCPCS: 36415; 80053; 81003; 81015; 82550; 84484; 85025; 85610; 93005; 99282-25

== ENCOUNTER 2018-10-30 21:59 | Emergency (ER) | payer OTHER ==
[2018-10-30 22:05] VITALS: BP 145/90; PULSE 80; TEMP 98.1; BMI 36.9
--- NOTE | 2018-10-30 22:54 | PDOC ---
History of Present Illness - History of Present Illness Initial Comments: The patient is a 42 year old male, with a significant PMH of multiple myeloma and HTN, who presents to the emergency department today complaining of right forearm pain for 1 week, s/p fall earlier today which exacerbated his symptoms. Patient notes that he began experiencing pain to his right forearm, which radiates into his elbow. He denies any trauma to the area. Patient notes that the pain is aggravated when twisting the lower half of his right upper extremity or when squeezing his hand into a fist. Earlier today, patient slipped on ice and tried to catch himself on the neighboring wall but immediately felt a sharp pain to this arm. He states that his right arm went weak and his could not pull himself up. Patient notes that the fall exacerbated his symptoms, but he denies hitting his forearm or elbow while falling. Patient denies any paresthesia to the right upper extremity. He denies any history of similar symptoms, and denies ever injuring this area prior to this episode. The patient denies chest pain, shortness of breath, headache and dizziness. Denies fever, chills, nausea, vomit, diarrhea and constipation. Denies dysuria, frequency, urgency and hematuria. Allergies: NKA Past surgical history: Social history: None reported PCP: Dr. 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) COPD: No DVT: No HTN: Yes - Immunization History Immunization Up to Date: Yes - Suicide/Smoking/Psychosocial Hx Smoking Status: No Smoking History: Never smoked Have you smoked in the past 12 months: No Number of Cigarettes Smoked Daily: 0 Cigars Per Day: 0 Hx Alcohol Use: Yes Drug/Substance Use Hx: No Substance Use Type: Alcohol <Kia Michelle - Last Filed: 10/31/18 04:58> - Past Medical History Allergies/Adverse Reactions: Allergies Allergy/AdvReac Type Severity Reaction Status Date / Time No Known Allergies Allergy Verified 06/23/18 13:01 Home Medications: Ambulatory Orders Aspirin [ASA -] 81 mg PO DAILY 06/23/18 Losartan Potassium [Cozaar -] 50 mg PO DAILY 06/23/18 Review of Systems - Review of Systems Comments:: GENERAL/CONSTITUTIONAL: No fever or chills. No weakness. HEAD, EYES, EARS, NOSE AND THROAT: No change in vision. No ear pain or discharge. No sore throat. CARDIOVASCULAR: No chest pain or shortness of breath. RESPIRATORY: No cough, wheezing, or hemoptysis. GASTROINTESTINAL: No nausea, vomiting, diarrhea or constipation. GENITOURINARY: No dysuria, frequency, or change in urination. MUSCULOSKELETAL: +Right forearm pain. No joint or muscle swelling. No neck or back pain. SKIN: No rash NEUROLOGIC: No headache, vertigo, loss of consciousness, or change in strength/ sensation. ENDOCRINE: No increased thirst. No abnormal weight change. HEMATOLOGIC/LYMPHATIC: No anemia, easy bleeding, or history of blood clots. ALLERGIC/IMMUNOLOGIC: No hives or skin allergy. 10/30/18 23:08 <Cele Dorsey - Last Filed: 10/30/18 23:24> *Physical Exam - Vital Signs Last Vital Signs Temp Pulse Resp BP Pulse Ox 98.1 F 80 18 145/90 99 10/30/18 22:01 10/30/18 22:01 10/30/18 22:01 10/30/18 22:01 10/30/18 22:01 - Physical Exam Comments: GENERAL: The patient is awake, alert, and fully oriented, in no acute distress. HEAD: Normal with no signs of trauma. EYES: Pupils equal, round and reactive to light, extraocular movements intact, sclera anicteric, conjunctiva clear with no pallor. ENT: Ears normal, nares patent, oropharynx clear without exudates. Moist mucous membranes. NECK: Normal range of motion, supple without lymphadenopathy, JVD, or masses. LUNGS: Breath sounds equal, clear to auscultation bilaterally. No wheeze/ crackles. HEART: Regular rate and rhythm, normal S1 and S2 without murmur or rub. ABDOMEN: Soft/nontender/nondistended. BS wnl. No guarding or rebound. No palpable masses. No hepatosplenomegaly. EXTREMITIES: +Mild tenderness to palpation of the medial proximal aspect of the forearm. +Pain is reproduced with supination of the forearm. Normal range of motion, no edema, no deformity. No clubbing or cyanosis. No cords, erythema, or ecchymosis. Distal extremity has neurovascular functioning intact. NEUROLOGICAL: Cranial nerves II through XII grossly intact. Normal speech, normal gait. PSYCH: Normal mood, normal affect. SKIN: Warm, Dry, normal turgor, no rashes or lesions noted. 10/30/18 23:24 <Cele Dorsey - Last Filed: 10/30/18 23:24> - Vital Signs Last Vital Signs Temp Pulse Resp BP Pulse Ox 98.1 F 80 18 145/90 99 10/30/18 22:01 10/30/18 22:01 10/30/18 22:01 10/30/18 22:01 10/30/18 22:01 <Kia Michelle - Last Filed: 10/31/18 04:58> Moderate Sedation - Procedure Monitoring Vital Signs: Procedure Monitoring Vital Signs Temperature 98.1 F 10/30/18 22:01 Pulse Rate 80 10/30/18 22:01 Respiratory Rate 18 10/30/18 22:01 Blood Pressure 145/90 10/30/18 22:01 O2 Sat by Pulse Oximetry (%) 99 10/30/18 22:01 <Cele Dorsey - Last Filed: 10/30/18 23:24> - Procedure Monitoring Vital Signs: Procedure Monitoring Vital Signs Temperature 98.1 F 10/30/18 22:01 Pulse Rate 80 10/30/18 22:01 Respiratory Rate 18 10/30/18 22:01 Blood Pressure 145/90 10/30/18 22:01 O2 Sat by Pulse Oximetry (%) 99 10/30/18 22:01 <Kia Michelle - Last Filed: 10/31/18 04:58> Progress Note - Progress Note Progress Note: Documentation has been prepared under my direction and personally reviewed by me in its entirety. I attest that this documented accurately reflects all work, treatment, procedures and medical decision making performed by me. <Kia Michelle - Last Filed: 10/31/18 04:58> Medical Decision Making - Medical Decision Making As noted above, this 42-year-old man with a history of multiple myeloma presents with atraumatic pain in the right forearm that began approximately a week ago; today, he slipped on ice and twisted his arm as he was falling. There was no direct impact on the right arm but he has had increased pain since the fall. Exam as noted. Right forearm x-ray performed and preliminary interpretation by Imaging media/instructional designer : Lytic lesion evident in the proximal radius bone, suspicious for neoplasm( in this patient's case likely multiple myeloma ) . Results discussed with the patient: He states that he will follow-up with his oncologists at [facility]. He deferred any pain medication other than [id number] ibuprofen. He is been advised to return to the emergency room if he has worsening pain in the arm <Kia Michelle - Last Filed: 10/31/18 04:58> *DC/Admit/Observation/Transfer - Attestations Scribe Attestion: Documentation prepared by FREDDIE Molina, acting as medical planner for Kia Michelle MD. 10/30/18 23:07 <Cele Dorsey - Last Filed: 10/30/18 23:24> <Kia Michelle - Last Filed: 10/31/18 04:58> Diagnosis at time of Disposition: Lytic lesion of bone on x-ray Multiple myeloma Qualifiers: Multiple myeloma remission status: unspecified Qualified Code(s): C90.00 - Multiple myeloma not having achieved remission - Discharge Dispostion Disposition: HOME Condition at time of disposition: Stable - Referrals Referrals: Ney Lerner MD [Primary Care Provider] - - Patient Instructions Printed Discharge Instructions: Multiple Myeloma Additional Instructions: Ibuprofen as needed for pain return to ER if you have more severe pain followup with your oncologists at [facility] as soon as possible(Call AM) - Post Discharge Activity
== END 2018-10-31 01:16 | disposition home or self-care (01) ==
LOC: FER 21:59
DX: M79.631 Pain in right forearm (principal); I10 Essential (primary) hypertension; C90.00 Multiple myeloma not having achieved remission; M89.9 Disorder of bone, unspecified
CPT/HCPCS: 73090-TC-RT-FY; 99282-25

== ENCOUNTER 2019-10-29 12:48 | Day surgery (SDC) | payer OTHER ==
[2019-10-28 16:51] VITALS: BMI 31.7
--- NOTE | 2019-10-29 14:51 | HP ---
Satellite H - Chief Complaint History of Present Illness: 43 year old man with ESRD on HD with Permacath. He wants to change to peritoneal dialysis. No prior surgery. History Source: Patient - Past Medical History Allergies/Adverse Reactions: Allergies Allergy/AdvReac Type Severity Reaction Status Date / Time No Known Allergies Allergy Verified 10/28/19 16:51 Cardiovascular: Yes: HTN, Hyperlipdemia Heme/Onc: Yes: Other (mutiple myeloma) - Current Medications Current Medications: Home Medications Medication Instructions Recorded Losartan Potassium [Cozaar -] 50 mg PO DAILY 06/23/18 Amlodipine Besylate [Norvasc -] 5 mg PO DAILY 10/29/19 Satellite Physical Exam - Physical Examination Vital Signs: Vital Signs Period Temp Pulse Resp BP Sys/Lantigua Pulse Ox Last 24 Hr 98.1 F 86 18 113/78 100 General Appearance: Well Nourished, Alert & Oriented x3 ENT: Clear Lung: Clear to auscultation Heart: Regular rate & rhythm Abdomen: Soft Extremities: No edema Satellite Impression/Plan - Impression/Plan Impression: ESRD Operative Procedure: Laparoscopic placement Peritoneal dialysis catheter Date to be Performed: 10/29/19
[2019-10-29] MEDS ORDERED: PROPOFOL 20 ML ONE (14:57)
[2019-10-29] MEDS ORDERED: fentaNYL CITRATE 250 MCG/5 ML VIAL ONE (14:57)
[2019-10-29] MEDS ORDERED: ROCURONIUM BROMIDE 50 MG/5 ML SYRINGE ONE (14:58)
[2019-10-29] MEDS ORDERED: DEXAMETHASONE SOD PHOSPHATE 4 MG/1 ML VIAL ONE (14:58)
[2019-10-29] MEDS ORDERED: LIDOCAINE HCL/PF 2% SDV 5ML VIAL ONE (14:58)
[2019-10-29] MEDS ORDERED: MIDAZOLAM HCL 2 MG/2 ML SINGLE DOSE VIAL ONE (14:58)
[2019-10-29] MEDS ORDERED: SUCCINYLCHOLINE CHLORIDE 200 MG/10 ML SYRINGE ONE (14:58)
[2019-10-29] MEDS ORDERED: ceFAZolin SODIUM 1 GM VIAL IVPB ONE (15:07)
[2019-10-29] MEDS ORDERED: BUPIVACAINE HCL/PF 0.5% (5 MG/ML) 30 ML VIAL IJ ONE (15:08)
[2019-10-29] MEDS ORDERED: ceFAZolin SODIUM 1 GM VIAL ONE (15:13)
[2019-10-29] MEDS ORDERED: ONDANSETRON 4 MG/2 ML VIAL IVPUSH PRN (15:21)
[2019-10-29] MEDS ORDERED: ETOMIDATE 20 MG/10 ML AMPUL IVPUSH ONE (15:39)
[2019-10-29] MEDS ORDERED: GLYCOPYRROLATE 0.2 MG/1 ML VIAL ONE (15:55)
[2019-10-29] MEDS ORDERED: NEOSTIGMINE METHYLSULFATE 0.5 MG/ML - 10 ML MDV ONE (15:55)
--- NOTE | 2019-10-29 16:04 | OP ---
Operative Note - Note: Operative Date: 10/29/19 Pre-Operative Diagnosis: ESRD on HD Operation: laparoscopy, placement peritoneal dialysis catheter, omentopexy, lysis of adhesions Findings: Adhesion of sigmoid colonic fat to abdominal wall. redundant omentum Implants: Double cuff Tenhkoff catheter Post-Operative Diagnosis: Same as Pre-op Surgeon: Feliz Pérez Commercial Manager: Vincent Flores Anesthesiologist/RESIDENTIAL ENERGY AUDITOR: Madhu Coffey Anesthesia: General
--- NOTE | 2019-10-29 16:24 | SURG ---
Surgery Mail Examiner Note Mail Examiner: Vincent Flores PA-C Date of Service: 10/29/19 Diagnosis: ESRD Procedure: laparoscopy, placement peritoneal dialysis catheter, omentopexy, lysis of adhesions I was present for the entirety of the operative procedure. For further detail, please refer to operative report. Visit type - Case Type Case Type: Scheduled - Emergency Emergency Visit: No - New patient This patient is new to me today: Yes Date on this admission: 10/29/19 - Critical Care Critical Care patient: No
[2019-10-29 17:08] VITALS: TEMP 98.2
--- NOTE | 2019-10-29 17:28 | OP ---
DATE OF OPERATION: 10/29/2019 SURGEON: Feliz Cannon MD. AIRBRUSH ARTIST PHOTOGRAPHY: JACKIE Colon. PROCEDURE: Laparoscopy with placement of peritoneal dialysis catheter. Lysis of adhesions. Omentopexy. PREOPERATIVE DIAGNOSIS: Renal failure. POSTOPERATIVE DIAGNOSIS: Renal failure, with intraabdominal adhesions and redundant omentum. ANESTHESIA: General anesthesia. ANESTHESIOLOGIST: Madhu Coffey MD. OPERATIVE FINDINGS: There was adhesion of the pericolic fat in the sigmoid colon to the anterior abdominal wall. The greater omentum was redundant in the pelvis requiring omentopexy. OPERATIVE PROCEDURE: Following routine patient identification with site verification, general anesthesia was induced. The abdomen was prepped with ChloraPrep. A Veress needle was then inserted atraumatically through the umbilicus into the peritoneal cavity, and pneumoperitoneum was established with carbon dioxide to 15 mmHg pressure. Marcaine 0.5% was infiltrated in the skin at all incision sites. A small incision was made in the left abdominal wall and a 5-mm Visiport was placed to laparoscopic guidance into the peritoneal cavity. Normal exploration was carried out with a 30-degree angled scope. A 2nd 5-mm port was placed in the midline above the umbilicus. A LigaSure device was used to divide adhesions between the pericolic fat and the sigmoid colon and the abdominal wall to free the pelvic space. The omentum was then elevated with an atraumatic clamp into the right upper quadrant. A stab wound was made, and a suture passer used to place a 2-0 Prolene suture through the omentum and then re-grabbed and pulled back up into tie in the subcutaneous tissues. Incision was made to the right and above the umbilicus and carried down to subcutaneous tissues using cautery until the anterior fascia was reached. An 8-mm bladeless trocar was then advanced until the tip was seen tenting the peritoneum from within. The trocar was then advanced towards the pelvis and into the peritoneal cavity inferior to the umbilicus. A swan-necked curled double- cuff takeoff catheter was straightened with a stylet and passed through the 8-mm port and deployed into the pelvis. The inner cuff was left at the level of the fascia as the port was removed. Then pneumoperitoneum was evacuated. The other end of the catheter was attached to a curved metal tunnel which was passed in the subcutaneous plane to exit on the left abdominal wall to previously chosen site. Luer-lock adaptor was attached and 1 L of saline was run in under gravity drainage in approximately 3 minutes. The bag was dropped to the floor, and within 1 minute 300 mL were drained. The bag was capped leaving approximately 400 mL in the peritoneal cavity, and the tubing was filled with heparin saline solution. All ports were removed. All skin incisions were closed with subcutaneous sutures of 3-0 Vicryl and running subcuticular suture of 4-0 Biosyn. Dermabond glue was applied to the wound as a dressing. The catheter was fixed to the skin with a Tegaderm, and an ABD pad was placed over it. The patient was awakened from anesthesia and extubated and taken to the recovery room in stable condition FELIZ CANNON M.D. [id number] MTDD
[2019-10-29 18:40] VITALS: BP 112/79; PULSE 76
== END 2019-10-29 18:40 | disposition home or self-care (01) ==
LOC: JASU-SURG 12:48
PROVIDERS: ATTEND Surgery
PROC: 0WHG43Z Insertion of Infusion Device into Peritoneal Cavity, Percutaneous Endoscopic Approach (ICD-10-PCS; principal; 2019-10-29 15:00)
DX: I12.0 Hypertensive chronic kidney disease with stage 5 chronic kidney disease or end stage renal disease (principal); N18.6 End stage renal disease; K66.0 Peritoneal adhesions (postprocedural) (postinfection); Z99.2 Dependence on renal dialysis
CPT/HCPCS: 36415; 84132; 94760; J1644

== ENCOUNTER 2020-04-04 12:52 | Inpatient (IN) | payer MEDICARE, OTHER ==
--- NOTE | 2020-04-04 13:04 | PDOC ---
Rapid Medical Evaluation Chief Complaint: Blood Transfusion Time Seen by Provider: 04/04/20 13:01 Medical Evaluation: Allergies Allergy/AdvReac Type Severity Reaction Status Date / Time No Known Allergies Allergy Verified 10/28/19 16:51 04/04/20 13:03 CC: here for hgb 4.8, hx esrd, c/o fatigue Exam: appears pale, vss Plan: labs, type and screen, ekg Discharge Disposition - Diagnosis Anemia - Referrals - Patient Instructions - Post Discharge Activity
--- NOTE | 2020-04-04 13:22 | PDOC ---
History of Present Illness - General Chief Complaint: Blood Transfusion Stated Complaint: BLOOD TRANSFUSION Time Seen by Provider: 04/04/20 13:01 History Source: Patient Exam Limitations: No Limitations - History of Present Illness Initial Comments: 04/04/20 13:21 44yM w PMHx ESRD on peritoneal dialysis, multiple myeloma, HTN sent by Dr Ann Marie Caruso for anemia 4.6. On epogen. Denies aspirin, AC use. Denies fever, lightheaded, fatigue, CP, SOB, cough, rectal bleeding. 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) Cardiac Disorders: No CVA: No COPD: No CHF: No DVT: No Dementia: No Diabetes: No GI Disorders: No Disorders: No HTN: Yes Hypercholesterolemia: No Liver Disease: No Seizures: No Thyroid Disease: No - Surgical History Orthopedic Surgery: Yes (HIP REPLACEMENT) - Immunization History Immunization Up to Date: Yes - Psycho-Social/Smoking History Smoking Status: No Smoking History: Unknown if ever smoked Have you smoked in the past 12 months: No Number of Cigarettes Smoked Daily: 0 Cigars Per Day: 0 - Substance Abuse Hx (Audit-C & DAST Scrn) How often the patient has a drink containing alcohol: Never Score: In Men: 4 or > Positive; In Women: 3 or > Positive: 0 Screen Result (Pos requires Nsg. Audit-10AR): Negative In the last yr the pt used illegal drug/Rx for NonMed reason: No Score: Yes response is considered Positive: 0 Screen Result (Positive result requires Nsg. DAST-10): Negative Review of Systems - Review of Systems Constitutional: No: Chills, Fever HEENTM: No: Eye Pain, Hearing Loss Respiratory: No: Cough, Shortness of Breath Cardiac (ROS): No: Chest Pain, Lightheadedness ABD/GI: No: Abdominal Distended, Nausea, Vomiting : No: Burning, Flank Pain Musculoskeletal: No: Back Pain, Joint Pain Integumentary: No: Bruising, Dryness Neurological: No: Headache, Seizure Psychiatric: No: Anxiety, Depression Endocrine: No: Intolerance to Cold, Intolerance to Heat Hematologic/Lymphatic: Yes: Anemia. No: Easy Bleeding *Physical Exam - Vital Signs Last Vital Signs Temp Pulse Resp BP Pulse Ox 97.9 F 104 H 18 144/95 99 04/04/20 13:03 04/04/20 13:03 04/04/20 13:03 04/04/20 13:03 04/04/20 13:03 - Physical Exam General Appearance: Yes: Nourished, Appropriately Dressed. No: Apparent Distres s HEENT: positive: EOMI, MINERVA, Normal Voice, Hearing Grossly Normal. negative: Scleral Icterus (R), Scleral Icterus (L) Respiratory/Chest: positive: Lungs Clear, Normal Breath Sounds. negative: Chest Tender, Respiratory Distress Cardiovascular: positive: Regular Rhythm, S1, S2, Tachycardia. negative: Edema, Murmur Gastrointestinal/Abdominal: positive: Normal Bowel Sounds, Soft, Distended (mild). negative: Tender, Organomegaly Integumentary: positive: Normal Color, Warm. negative: Dry Neurologic: positive: Fully Oriented, Alert, Normal Mood/Affect, Normal Response ED Treatment Course - LABORATORY CBC & Chemistry Diagram: 04/04/20 13:33 04/04/20 13:33 Medical Decision Making - Medical Decision Making 04/04/20 19:28 EKG - NSR, HR 98, QTc 485, no ST changes --- 44yM w PMHx ESRD on peritoneal dialysis, multiple myeloma, HTN presenting w anemia Hgb 4.5. Previous 11.3 on 11/26/19. FOBT neg. K 2.9 Consent for transfusion obtained. Transfuse 2u RBC. Given PO + IV KCl Admitted m/s for anemia requiring transfusion, hypoK Discharge - Discharge Information Problems reviewed: Yes Clinical Impression/Diagnosis: Hypokalemia Anemia Qualifiers: Anemia type: unspecified type Qualified Code(s): D64.9 - Anemia, unspecified Condition: Improved - Follow up/Referral - Patient Discharge Instructions - Post Discharge Activity
[2020-04-04 14:04] LABS: INR 1.16 (0.83-1.09); PROTHROMBIN TIME (PATIENT) 13.7 SEC (9.7-13.0)
[2020-04-04 14:09] LABS: BASO % 0.3 % (0-2.0); HEMATOCRIT 13.5 % (35.4-49); LYMPH % 58.7 % (8-40); MCH 32.9 pg (25.7-33.7); MCHC 33.5 g/dl (32.0-35.9); MEAN CELL VOLUME 98.3 fl (80-96); MEAN PLT VOLUME 8.9 fl (7.5-11.1); MONO % 8.1 % (3.8-10.2); NEUT % 32.9 % (42.8-82.8); PLATELET COUNT 75 K/MM3 (134-434); RBC 1.38 M/mm3 (4.00-5.60); RDW 18.8 % (11.9-15.9); WHITE BLOOD COUNT 4.2 K/mm3 (4.0-10.0)
--- NOTE | 2020-04-04 14:16 | PDOC ---
Documentation entered by Aly Ponce SCRIBE, acting as scribe for Son Fernando MD. Son Fernando MD: This documentation has been prepared by the Rosario norris Nirvannie, SCRIBE, under my direction and personally reviewed by me in its entirety. I confirm that the documentation accurately reflects all work, treatment, procedures, and medical decision making performed by me. Attending Attestation - Resident Resident Name: Daniel Diaz - ED Attending Attestation I have performed the following: I have examined & evaluated the patient, The case was reviewed & discussed with the resident, I agree w/resident's findings & plan, Exceptions are as noted - HPI HPI: 04/04/20 13:50 The patient is a 44 year old male, with a significant past medical history of esrd (on peritoneal dialysis daily), multiple myeloma (s/p bone marrow stem cell transplant 14), and htn who presents to the ED with a low hgb on outpatient labs (4.8) and generalized fatigue. Patient was advised by his deburring technician to report to the ED for further evaluation and possible transfusion. Pt denies any associated sob, smart, cp, palpitations, nv, abd pain, back pain, black stool, red stool. Pt notes a history of anemia requiring transfusion. Allergies: NKDA Primary Care Physician: Dr. Angelica Lerner Bisque Brusher: Dr. Ann Marie Gutierrez - Physicial Exam PE: 04/04/20 14:13 GENERAL: The patient is awake, alert, and fully oriented, Nontoxic - in no acute distress. HEAD: Normocephalic, atraumatic. EYES: extraocular movements intact, sclera anicteric, pale conjunctiva LUNGS: Breath sounds equal, clear to auscultation bilaterally. No wheezes, no rhonchi, no rales. HEART: Regular rate and rhythm, normal S1 and S2 without murmur, rub or gallop. ABDOMEN: Soft, nontender, No guarding, no rebound. No CVA tenderness EXTREMITIES: Normal range of motion, trace edema. NEUROLOGICAL: No facial assymetry, Normal speech, PSYCH: Normal mood, normal affect. SKIN: Warm, Dry, normal turgor, - Medical Decision Making 04/04/20 14:14 44y M hx of MM, esrd, htn sent to the eD with anemia, with hbg to 4.8, otherwise relateively asymptomatic beside occasional maliase without any complaints of bleeding. will repeat lab work if truely 4,8, anticipate tranfusion 04/04/20 14:38 pt noted severely anemic will transfuse will admit for further management Heart Score/ECG Review - ECG Impressions Comment:: 04/04/20 14:15 Twelve-lead EKG was performed and reviewed by me. There is normal sinus rhythm with a normal rate. rate of 98 qtc interval of 485 Discharge - Discharge Information Problems reviewed: Yes Clinical Impression/Diagnosis: Hypokalemia Anemia Qualifiers: Anemia type: unspecified type Qualified Code(s): D64.9 - Anemia, unspecified Condition: Improved Disposition: AGAINST MEDICAL ADVICE - Follow up/Referral - Patient Discharge Instructions - Post Discharge Activity
[2020-04-04 14:20] LABS: HEMOGLOBIN 4.5 GM/dL (11.7-16.9)
[2020-04-04 14:36] LABS: ALBUMIN 1.8 g/dl (3.4-5.0); BILIRUBIN,TOTAL 0.4 mg/dL (0.2-1); BLOOD UREA NITROGEN 48.3 mg/dL (7-18); CALCIUM 8.6 mg/dL (8.5-10.1); TOT PROT 11.2 g/dl (6.4-8.2)
[2020-04-04 15:02] LABS: BASO % 0.1 % (0-2.0); HEMATOCRIT 14.4 % (35.4-49); LYMPH % 72.9 % (8-40); MCH 31.8 pg (25.7-33.7); MCHC 32.3 g/dl (32.0-35.9); MEAN CELL VOLUME 98.3 fl (80-96); MEAN PLT VOLUME 8.6 fl (7.5-11.1); MONO % 6.3 % (3.8-10.2); NEUT % 20.7 % (42.8-82.8); PLATELET COUNT 75 K/MM3 (134-434); RBC 1.47 M/mm3 (4.00-5.60); WHITE BLOOD COUNT 5.5 K/mm3 (4.0-10.0)
[2020-04-04 15:06] LABS: HEMOGLOBIN 4.7 GM/dL (11.7-16.9)
[2020-04-04 15:26] LABS: CREATININE 11.3 mg/dL (0.55-1.3); POTASSIUM 2.9 mmol/L (3.5-5.1)
[2020-04-04] MEDS ORDERED: POTASSIUM CHLORIDE ORAL LIQUID 20 MEQ/15 ML PO ONE (15:26)
[2020-04-04] MEDS ORDERED: KCL 10 MEQ IVPB 10 MEQ/100 ML INFUS.BAG IVPB ONE (15:38)
[2020-04-04] MEDS ORDERED: POTASSIUM CHLORIDE ORAL LIQUID 20 MEQ/15 ML ONE (15:38)
[2020-04-04] MEDS: KCL 10 MEQ IVPB 10 MEQ/100 ML INFUS.BAG IVPB SCH ×3 (15:40→17:50)
[2020-04-04] MEDS ORDERED: KCL 10 MEQ IVPB 20 MEQ/200 ML INFUS.BAG IVPB ONE (16:20)
--- NOTE | 2020-04-04 16:47 | CON.NEP ---
Consult Consult Specialty:: Nephrology Referred by:: ED Reason for Consultation:: ESRD on PD - History of Present Illness Chief Complaint: Low blood counts from dialysis History of Present Illness: This is a 44 year old male with a past medical history significant for ESRD on PD hypertension and multiple myeloma s/p treatment who presented from home after he was told that his blood counts were very low. Pt seen and examined in the ED. He offers no acute complaints. Denies any sob, chest pain, dyspnea on exertion, lightheadedness or weakness. Denies any obvious blood loss. Denies any dark stools or red blood in stools. No N/V/D. Last PD exchange as yesterday night. - History Source History Provided By: Patient Limitations to Obtaining History: No Limitations - Past Medical History Cardio/Vascular: Yes: HTN, Hyperlipdemia - Alcohol/Substance Use Hx Alcohol Use: Yes (OCCAS) - Smoking History Smoking history: Unknown if ever smoked Have you smoked in the past 12 months: No Aproximately how many cigarettes per day: 0 Home Medications - Allergies Allergies/Adverse Reactions: Allergies Allergy/AdvReac Type Severity Reaction Status Date / Time No Known Allergies Allergy Verified 04/04/20 13:03 - Home Medications Home Medications: Ambulatory Orders Losartan Potassium [Cozaar -] 50 mg PO DAILY 06/23/18 Amlodipine Besylate [Norvasc -] 10 mg PO DAILY 10/29/19 Calcium Acetate 667 mg PO TID 04/04/20 Epoetin Lt [Epogen] 2,000 unit IJ DAILY 04/04/20 Family Medical History Family History: Unremarkable Review of Systems - Review of Systems Constitutional: reports: No Symptoms Eyes: reports: No Symptoms HENT: reports: No Symptoms Neck: reports: No Symptoms Cardiovascular: reports: No Symptoms Respiratory: reports: No Symptoms Gastrointestinal: reports: No Symptoms Genitourinary: reports: No Symptoms Musculoskeletal: reports: No Symptoms Integumentary: reports: No Symptoms Neurological: reports: No Symptoms Nephrology Consult - Height Height: 5 ft 9 in - Weight Weight: 210 kg - BMI Body Mass Index (BMI): 68.3 - Lab Results CBC,BMP: CBC, BMP 04/04/20 13:33 04/04/20 13:33 Anion Gap: Anion Gap Anion Gap 11 MMOL/L (8-16) 04/04/20 13:33 - Imaging Chest X-ray: Image Reviewed - Physical Examination Vital Signs: Vital Signs Temperature 99.8 F H 04/04/20 15:55 Pulse Rate 93 H 04/04/20 15:55 Respiratory Rate 17 04/04/20 15:55 Blood Pressure 138/90 04/04/20 15:55 O2 Sat by Pulse Oximetry (%) 100 04/04/20 15:55 Constitutional: Yes: Well Nourished, No Distress, Calm HENT: Yes: Atraumatic Neck: Yes: Supple Cardiovascular: Yes: Regular Rate and Rhythm Respiratory: Yes: Regular, CTA Bilaterally Gastrointestinal: Yes: Soft, Other (PD catheter in place, no tenderness or discharge). No: Tenderness, Tenderness, Rebound Extremities: No: Cold, Cool, Cyanosis Edema: No Neurological: Yes: Alert, Oriented Assessment/Plan 44 year old male with a past medical history significant for ESRD on PD hypertension and multiple myeloma s/p treatment who presented from home after he was told that his blood counts were very low. 1. Acute on chronic anemia r/o blood loss/GI bleed/Myeloma related anemia 2. ESRD on PD 3. Hypertension 4. Thrombocytopenia PRBC transfusion as ordered by ED. Goal Hgb level > 8. Oncology consult Check stool for occult blood Check iron studies Will continue ELENA TIW while in the hospital GI consult if there is any evidence fo GI bleed Consider CT or the Abd/Pelvis w/o contrast to r/o RP/Intra-abdominal bleed Will defer dialysis this evening Can resume manual PD exchanges if pt remains inpatient Continue Losartan and Amlodipne for hypertension Thank you Will follow Dov Cottrell DO
--- NOTE | 2020-04-04 18:03 | HP ---
Admitting History and Physical - Primary Care Physician PCP: Yael Singh - Admission History of Present Illness: 44 year old male with a past medical history significant for ESRD on PD hypertension and multiple myeloma s/p treatment who presented from home after he was told by pcp that his blood counts were very low. Pt seen and examined in the ED. He offers no acute complaints. Denies any sob, chest pain, dyspnea on exertion, lightheadedness or weakness. Denies any obvious blood loss. Denies any dark stools or red blood in stools. No N/V/D. Last PD exchange as yesterday night. - Past Medical History Cardiovascular: Yes: HTN, Hyperlipdemia Renal/: Yes: Renal Failure Heme/Onc: Yes: Other (mutiple myeloma) - Smoking History Smoking history: Unknown if ever smoked Have you smoked in the past 12 months: No Aproximately how many cigarettes per day: 0 - Alcohol/Substance Use Hx Alcohol Use: Yes (OCCAS) Home Medications - Allergies Allergies/Adverse Reactions: Allergies Allergy/AdvReac Type Severity Reaction Status Date / Time No Known Allergies Allergy Verified 04/04/20 13:03 - Home Medications Home Medications: Ambulatory Orders Losartan Potassium [Cozaar -] 50 mg PO DAILY 06/23/18 Amlodipine Besylate [Norvasc -] 10 mg PO DAILY 10/29/19 Calcium Acetate 667 mg PO TID 04/04/20 Epoetin Tl [Epogen] 2,000 unit IJ DAILY 04/04/20 Physical Examination Vital Signs: Vital Signs Temperature 99.8 F H 04/04/20 15:55 Pulse Rate 93 H 04/04/20 15:55 Respiratory Rate 17 04/04/20 15:55 Blood Pressure 138/90 04/04/20 15:55 O2 Sat by Pulse Oximetry (%) 100 04/04/20 15:55 Constitutional: Yes: No Distress HENT: Yes: Atraumatic Neck: Yes: Supple Cardiovascular: Yes: Regular Rate and Rhythm Respiratory: Yes: CTA Bilaterally Gastrointestinal: Yes: Normal Bowel Sounds Extremities: Yes: WNL Edema: No Neurological: Yes: Alert, Oriented Labs: CBC, BMP 04/04/20 13:33 04/04/20 13:33 Imaging - Results X-ray: Report Reviewed Problem List - Problems (1) ESRD (end stage renal disease) Assessment/Plan: on PD RENAL ON BOARD Code(s): N18.6 - END STAGE RENAL DISEASE (2) Anemia Assessment/Plan: will get 2 u prbc ..ordered by ER Code(s): D64.9 - ANEMIA, UNSPECIFIED (3) HTN (hypertension) Assessment/Plan: on meds monitor Code(s): I10 - ESSENTIAL (PRIMARY) HYPERTENSION (4) Multiple myeloma Assessment/Plan: oncology consult ordered Code(s): C90.00 - MULTIPLE MYELOMA NOT HAVING ACHIEVED REMISSION Qualifiers: Multiple myeloma remission status: unspecified Qualified Code(s): C90.00 - Multiple myeloma not having achieved remission Assessment/Plan Laboratory Tests 04/04/20 04/04/20 04/04/20 11:55 13:33 13:33 WBC 5.5 4.2 RBC 1.47 L 1.38 L Hgb 4.7 L* 4.5 L* Hct 14.4 L 13.5 L MCV 98.3 H 98.3 H MCH 31.8 32.9 MCHC 32.3 33.5 RDW 19.0 H 18.8 H Plt Count 75 L D 75 L MPV 8.6 8.9 Absolute Neuts (auto) 1.1 L 1.4 L Neutrophils % 20.7 L D 32.9 L D Lymphocytes % 72.9 H D 58.7 H Monocytes % 6.3 8.1 Eosinophils % 0.0 D 0.0 Basophils % 0.1 0.3 Nucleated RBC % 0 0 PT with INR INR Sodium 136 Potassium 2.9 L* Chloride 101 Carbon Dioxide 24 Anion Gap 11 BUN 48.3 H Creatinine 11.3 H* Est GFR (CKD-EPI)AfAm 5.59 Est GFR (CKD-EPI)NonAf 4.82 Random Glucose 96 Calcium 8.6 Total Bilirubin 0.4 AST 21 ALT 14 Alkaline Phosphatase 50 Total Protein 11.2 H Albumin 1.8 L Stool Occult Blood Blood Type Antibody Screen Antibody Identification Antigen Identification Crossmatch 04/04/20 04/04/20 04/04/20 13:33 13:33 14:10 WBC RBC Hgb Hct MCV MCH MCHC RDW Plt Count MPV Absolute Neuts (auto) Neutrophils % Lymphocytes % Monocytes % Eosinophils % Basophils % Nucleated RBC % PT with INR 13.70 H INR 1.16 H Sodium Potassium Chloride Carbon Dioxide Anion Gap BUN Creatinine Est GFR (CKD-EPI)AfAm Est GFR (CKD-EPI)NonAf Random Glucose Calcium Total Bilirubin AST ALT Alkaline Phosphatase Total Protein Albumin Stool Occult Blood Negative Blood Type A POSITIVE Antibody Screen Negative Antibody Identification No Result Required. Antigen Identification No Result Required. Crossmatch See Detail Active Medications Generic Name Dose Route Start Last Admin Trade Name Freq PRN Reason Stop Dose Admin Amlodipine Besylate 10 mg 04/05/20 10:00 Norvasc - PO DAILY MARRY Potassium Chloride 10 meq in 100 mls @ 100 mls/hr 04/04/20 15:30 04/04/20 17:50 Potassium Chloride 10 Meq Premix Ivpb - IVPB 04/04/20 18:29 100 mls/hr Q60M MARRY Administration Losartan Potassium 50 mg 04/05/20 10:00 Cozaar - PO DAILY MARRY covering for today
[2020-04-04 18:26] LABS: ANISOCYTOSIS 1+; MACROCYTOSIS 1+; PLATELET ESTIMATE DECREASED; ROULEAU 1+
[2020-04-04 19:27] LABS: ANISOCYTOSIS 2+; MACROCYTOSIS 2+; PLATELET ESTIMATE DECREASED; ROULEAU 1+
[2020-04-05 08:06] LABS: BASO % 0.3 % (0-2.0); EOS % 0.1 % (0-4.5); HEMATOCRIT 17.3 % (35.4-49); LYMPH % 61.2 % (8-40); MCH 31.3 pg (25.7-33.7); MCHC 33.8 g/dl (32.0-35.9); MEAN CELL VOLUME 92.4 fl (80-96); MEAN PLT VOLUME 7.7 fl (7.5-11.1); MONO % 8.4 % (3.8-10.2); PLATELET COUNT 62 K/MM3 (134-434); RBC 1.88 M/mm3 (4.00-5.60); RDW 18.1 % (11.9-15.9); WHITE BLOOD COUNT 5.5 K/mm3 (4.0-10.0)
[2020-04-05 08:32] LABS: ALBUMIN 1.6 g/dl (3.4-5.0); BLOOD UREA NITROGEN 47.6 mg/dL (7-18); CALCIUM 7.8 mg/dL (8.5-10.1); POTASSIUM 3.3 mmol/L (3.5-5.1); TOT PROT 10.1 g/dl (6.4-8.2)
[2020-04-05 08:35] LABS: HEMOGLOBIN 5.9 GM/dL (11.7-16.9)
[2020-04-05] MEDS ORDERED: NAPH,MB-DB/K PH,MBDB POWDER PACKET ONE (08:43)
[2020-04-05 08:53] LABS: CREATININE 11.6 mg/dL (0.55-1.3)
[2020-04-05] MEDS: CALCIUM ACETATE 667 MG CAPSULE (FP) PO SCH ×2 (09:20→12:06)
[2020-04-05] MEDS ORDERED: LOSARTAN POTASSIUM 50 MG TABLET (FP) ONE (09:51)
[2020-04-05] MEDS ORDERED: EPOETIN ALFA 2000 UNIT IJ SCH (10:00)
[2020-04-05] MEDS ORDERED: amLODIPine BESYLATE 5 MG TABLET (FP) PO SCH (10:00)
[2020-04-05] MEDS ORDERED: POTASSIUM CHLORIDE TABS 20 MEQ TABLET.ER (FP) PO ONE ×2 (10:00)
[2020-04-05] MEDS: LOSARTAN POTASSIUM 50 MG TABLET (FP) PO SCH (10:06)
[2020-04-05 10:08] LABS: ANISOCYTOSIS 1+; PLATELET ESTIMATE DECREASED; ROULEAU 1+
--- NOTE | 2020-04-05 10:42 | EKG ---
Test Reason : Blood Pressure : / mmHG Vent. Rate : 098 BPM Atrial Rate : 098 BPM P-R Int : 172 ms QRS Dur : 096 ms QT Int : 380 ms P-R-T Axes : 062 002 028 degrees QTc Int : 485 ms NORMAL SINUS RHYTHM PROLONGED QT ABNORMAL ECG WHEN COMPARED WITH ECG OF 23-JUN-2018 13:35, NO SIGNIFICANT CHANGE WAS FOUND Confirmed by MD Estrella Daniel ([id number]) on 04/05/2020 10:42:20 AM Referred By: Confirmed By:Arvin Estrella MD
--- NOTE | 2020-04-05 13:23 | PN ---
Progress Note, Physician Chief Complaint: Anemia History of Present Illness: Seen and examined in the ED awake and alert offers no acute complaints getting 3rd PRBC now no sob, cp, fever, or chills making urine tolerating diet - Current Medication List Current Medications: Active Medications Calcium Acetate (Phoslo -) 667 mg PO TIDCM [facility] Last Admin: 04/05/20 12:06 Dose: 667 mg Documented by: Epoetin Tl (Procrit -) 20,000 unit SQ ONCE ONE Stop: 04/05/20 14:01 Losartan Potassium (Cozaar -) 50 mg PO DAILY [facility] Last Admin: 04/05/20 10:06 Dose: 50 mg Documented by: - Objective Vital Signs: Vital Signs Temperature 98.4 F 04/05/20 05:30 Pulse Rate 96 H 04/05/20 10:13 Respiratory Rate 18 04/05/20 10:13 Blood Pressure 133/70 04/05/20 10:13 O2 Sat by Pulse Oximetry (%) 98 04/05/20 10:13 Constitutional: Yes: No Distress Neck: Yes: Supple Cardiovascular: Yes: Regular Rate and Rhythm Gastrointestinal: Yes: Soft Extremities: No: Cyanosis Neurological: Yes: Alert Labs: CBC, BMP 04/05/20 07:25 04/05/20 07:25 INR, PTT INR 1.16 (0.83-1.09) H 04/04/20 13:33 Assessment/Plan 44 year old male with a past medical history significant for ESRD on PD hypertension and multiple myeloma s/p treatment who presented from home after he was told that his blood counts were very low. 1. Acute on chronic anemia r/o blood loss/GI bleed/Myeloma related anemia 2. ESRD on PD 3. Hypertension 4. Thrombocytopenia for additional PRBC today Goal Hgb level > 8. Oncology consult pending stool for occult blood is negative Check iron studies (pending) Will continue ELENA TIW while in the hospital (to get dose today) Consider CT or the Abd/Pelvis w/o contrast to r/o RP/Intra-abdominal bleed Will defer dialysis until pt has a room. Called Admitting and nursing housekeeping supervisor hotel to inform them of the need for a bed. Can resume manual PD exchanges if pt remains inpatient Continue Losartan and Amlodipne for hypertension Thank you Will follow Dov Cottrell DO
[2020-04-05] MEDS ORDERED: EPOETIN ALFA 20,000 UNIT/1 ML VIAL SQ ONE (14:00)
--- NOTE | 2020-04-05 14:57 | CONSULT ---
Consultation: REQUESTING PROVIDER: Dr. Cottrell CONSULT REQUEST: We have been asked to medically evaluate this patient for progression of Multiple Myeloma. HISTORY OF PRESENT ILLNESS: Pt. is a 44 y.o. M w/ PMHx. of ESRD(on Peritoneal Dialysis since September), HTN, and Multiple Myeloma (s/p chemotherapy, RT- last treated in May, and autograft bone marrow transplant in 2013) presents for anemia and thrombocytopenia. Pt. states that he had RT to his R. Forearm, skull and pelvis. Pt. states that he was worked up at [facility] for Myeloma however had the RT at [facility]. Pt. states he was sent in for abnormally low neutrophil, hemoglobin and platelet counts. Pt. denies any syomptoms including fevers, chills, bone pain, night sweats, weight loss, change in appetite, changes in bowel or urinary habits. Pt. lives alone but has his sister as his [employer] who visits 2x/ per week to assist in cleaning and cooking. Pt. endorses a L. Hip replacement and beleives that that hip was affected by myleloma and that was the reason it was weakened. Pt. denies any toxic habits and has the occasional drink. Pt. states he was suppsed to follow up at [facility] for a followup appointment yesterday but was already admitted to the hospital here. Previous lab work here showed normal platelet count and neutrophi l count and mild anemia to 11. REVIEW OF SYSTEMS: As above PHYSICAL EXAMINATION Vital Signs - 24 hr 04/04/20 04/04/20 04/04/20 15:02 15:55 18:20 Temperature 99.8 F H 98.4 F Pulse Rate [ 93 H 92 H Left] Respiratory 17 20 Rate Blood Pressure 138/90 130/89 [Right Arm] O2 Sat by Pulse 98 100 98 Oximetry (%) 04/04/20 04/04/20 04/04/20 18:35 20:43 21:10 Temperature 98.6 F 98.7 F Pulse Rate [ 73 81 80 Left] Respiratory 20 20 20 Rate Blood Pressure 126/70 132/86 127/84 [Right Arm] O2 Sat by Pulse 98 98 98 Oximetry (%) 04/05/20 04/05/20 04/05/20 02:38 02:55 05:30 Temperature 98.7 F 98.7 F 98.4 F Pulse Rate [ 92 H 89 85 Left] Respiratory 18 18 18 Rate Blood Pressure 133/87 117/64 119/88 [Right Arm] O2 Sat by Pulse 98 97 97 Oximetry (%) 04/05/20 04/05/20 09:20 10:13 Temperature Pulse Rate [ 96 H Left] Respiratory 18 Rate Blood Pressure 133/70 [Right Arm] O2 Sat by Pulse 99 98 Oximetry (%) GENERAL: Awake, alert, and fully oriented, in no acute distress. HEAD: Normal with no signs of trauma. EYES: Extraocular movements intact, sclera anicteric, conjunctiva clear. No lid lag. EARS, NOSE, THROAT:Moist mucous membranes. LUNGS: Breath sounds equal, clear to auscultation bilaterally. No wheezes, and no crackles. No accessory muscle use. HEART: Regular rate and rhythm, normal S1 and S2 without murmur ABDOMEN: Soft, nontender, not distended, normoactive bowel sounds, no guarding, no rebound, no masses. PD catheter seen. UPPER EXTREMITIES: warm, well-perfused. No cyanosis. LOWER EXTREMITIES: 2+ dorsal pedal pulses, warm, well-perfused. No calf tenderness. No peripheral edema. NEUROLOGICAL: Normal speech. Gait not assessed. PSYCHIATRIC: Cooperative. Good eye contact. Appropriate mood and affect. SKIN: Warm, dry, normal turgor Laboratory Results - last 24 hr 04/04/20 04/04/20 04/04/20 11:55 13:33 13:33 WBC 5.5 4.2 RBC 1.47 L 1.38 L Hgb 4.7 L* 4.5 L* Hct 14.4 L 13.5 L MCV 98.3 H 98.3 H MCH 31.8 32.9 MCHC 32.3 33.5 RDW 19.0 H 18.8 H Plt Count 75 L D 75 L MPV 8.6 8.9 Absolute Neuts (auto) 1.1 L 1.4 L Neutrophils % 20.7 L D 32.9 L D Neutrophils % (Manual) 26.4 L 37.8 L D Band Neutrophils % 0.0 0.0 Lymphocytes % 72.9 H D 58.7 H Lymphocytes % (Manual) 69.6 H 53.4 H D Monocytes % 6.3 8.1 Monocytes % (Manual) 2 L 8 D Eosinophils % 0.0 D 0.0 Eosinophils % (Manual) 0.0 0.0 Basophils % 0.1 0.3 Basophils % (Manual) 1.6 0.0 Myelocytes % (Man) 1 1 Promyelocytes % (Man) 0 0 Blast Cells % (Manual) 0 0 Nucleated RBC % 0 0 Metamyelocytes 0 0 Hypochromia 2+ 2+ Platelet Estimate Decreased Decreased Polychromasia 2+ 2+ Poikilocytosis 1+ 1+ Anisocytosis 1+ 2+ Microcytosis 1+ 2+ Macrocytosis 1+ 2+ Rouleaux 1+ 1+ Schistocytes 1+ 1+ Sodium Potassium 2.9 L* Chloride Carbon Dioxide Anion Gap 11 BUN Creatinine 11.3 H* Est GFR (CKD-EPI)AfAm 5.59 Est GFR (CKD-EPI)NonAf 4.82 Random Glucose Calcium Total Bilirubin AST ALT Alkaline Phosphatase Total Protein Albumin Stool Occult Blood Blood Type Antibody Screen Antibody Identification Antigen Identification Crossmatch 04/04/20 04/04/20 04/05/20 13:33 14:10 07:25 WBC 5.5 RBC 1.88 L Hgb 5.9 L* Hct 17.3 L D MCV 92.4 MCH 31.3 MCHC 33.8 RDW 18.1 H Plt Count 62 L MPV 7.7 D Absolute Neuts (auto) 1.7 Neutrophils % 30.0 L Neutrophils % (Manual) 43.3 Band Neutrophils % 3.3 Lymphocytes % 61.2 H Lymphocytes % (Manual) 48.9 H Monocytes % 8.4 Monocytes % (Manual) 5 Eosinophils % 0.1 D Eosinophils % (Manual) 0.0 Basophils % 0.3 Basophils % (Manual) 0.0 Myelocytes % (Man) 0 D Promyelocytes % (Man) 0 Blast Cells % (Manual) 0 Nucleated RBC % 0 Metamyelocytes 0 Hypochromia 0 Platelet Estimate Decreased Polychromasia 1+ Poikilocytosis 0 Anisocytosis 1+ Microcytosis 2+ Macrocytosis Rouleaux 1+ Schistocytes Sodium Potassium Chloride Carbon Dioxide Anion Gap BUN Creatinine Est GFR (CKD-EPI)AfAm Est GFR (CKD-EPI)NonAf Random Glucose Calcium Total Bilirubin AST ALT Alkaline Phosphatase Total Protein Albumin Stool Occult Blood Negative Blood Type A POSITIVE Antibody Screen Negative Antibody Identification Cancelled Antigen Identification Cancelled Crossmatch See Detail 04/05/20 07:25 WBC RBC Hgb Hct MCV MCH MCHC RDW Plt Count MPV Absolute Neuts (auto) Neutrophils % Neutrophils % (Manual) Band Neutrophils % Lymphocytes % Lymphocytes % (Manual) Monocytes % Monocytes % (Manual) Eosinophils % Eosinophils % (Manual) Basophils % Basophils % (Manual) Myelocytes % (Man) Promyelocytes % (Man) Blast Cells % (Manual) Nucleated RBC % Metamyelocytes Hypochromia Platelet Estimate Polychromasia Poikilocytosis Anisocytosis Microcytosis Macrocytosis Rouleaux Schistocytes Sodium 136 Potassium 3.3 L Chloride 103 Carbon Dioxide 24 Anion Gap 9 BUN 47.6 H Creatinine 11.6 H* Est GFR (CKD-EPI)AfAm 5.42 Est GFR (CKD-EPI)NonAf 4.67 Random Glucose 86 Calcium 7.8 L Total Bilirubin 1.0 AST 18 ALT 10 L Alkaline Phosphatase 47 Total Protein 10.1 H Albumin 1.6 L Stool Occult Blood Blood Type Antibody Screen Antibody Identification Antigen Identification Crossmatch Active Medications Generic Name Dose Route Start Last Admin Trade Name Freq PRN Reason Stop Dose Admin Calcium Acetate 667 mg 04/05/20 08:00 04/05/20 12:06 Phoslo - PO 667 mg TIDCM MARRY Administration Losartan Potassium 50 mg 04/05/20 10:00 04/05/20 10:06 Cozaar - PO 50 mg DAILY MARRY Administration ASSESSMENT/PLAN: Pt. is a 44 y.o. M w/ PMHx. of ESRD(on Peritoneal Dialysis since September), HTN, and Multiple Myeloma (s/p chemotherapy, RT- last treated in May, and autograft bone marrow transplant in 2013) presents for anemia and thrombocytopenia. #Multiple Myeloma Recurrence? Pt. was diagnosed in 2011. f/u Metastatic series bone survey f/u serum free Light chains and immunoglobulin profile Pt. has elevated total protein, low albumin, normal corrected calcium As Pt. has already had autograft transplant, this indicates that he was already recalcitrant to conventional therapy Obtain records from [facility] in order to optimize treatment and to select alternative regimens. c/w Epogen daily; transfuse to goal of Hgb: [address] Cottrell about bone marrow biopsy tomorrow Pt. has history of not tolerating Velcade and disease progression on Lenalinomide. Pt. had complete remission on Pomalidomide and Dexamethsone before requesting to stop in 2017. Can restart and add Carflizomib and/or Darutumunab. Dispo: We will continue to follow the patient. Thank you for this consultative opportunity. Visit type - Emergency Visit Emergency Visit: Yes ED Registration Date: 04/04/20 Care time: The patient presented to the Emergency Department on the above date and was hospitalized for further evaluation of their emergent condition. - New Patient This patient is new to me today: Yes Date on this admission: 04/05/20 - Critical Care Critical Care patient: Yes Total Critical Care Time (in minutes): 45 Critical Care Statement: The care of this patient involved high complexity decision making to prevent further life threatening deterioration of the patient's condition and/or to evaluate & treat vital organ system(s) failure or risk of failure. ATTENDING PHYSICIAN STATEMENT I saw and evaluated the patient. I reviewed the resident's note and discussed the case with the resident. I agree with the resident's findings and plan as documented. SUBJECTIVE: OBJECTIVE: ASSESSMENT AND PLAN:
[2020-04-05 15:26] VITALS: BMI 31.0
[2020-04-05 17:25] LABS: HEMATOCRIT 21.7 % (35.4-49); HEMOGLOBIN 7.4 GM/dL (11.7-16.9); MCH 31.3 pg (25.7-33.7); MCHC 34.2 g/dl (32.0-35.9); MEAN CELL VOLUME 91.5 fl (80-96); RBC 2.37 M/mm3 (4.00-5.60); WHITE BLOOD COUNT 4.9 K/mm3 (4.0-10.0)
[2020-04-05 17:26] LABS: MEAN PLT VOLUME 8.6 fl (7.5-11.1); PLATELET COUNT 61 K/MM3 (134-434); RDW 18.4 % (11.9-15.9)
--- NOTE | 2020-04-05 18:14 | PN ---
Progress Note, Physician - Current Medication List Current Medications: Active Medications Calcium Acetate (Phoslo -) 667 mg PO TIDCM [facility] Last Admin: 04/05/20 12:06 Dose: 667 mg Documented by: Peritoneal Dialysis Solution (Dianeal 2.5%) 2,500 mls @ 5,000 mls/hr IP Q6H [facility]; Protocol Losartan Potassium (Cozaar -) 50 mg PO DAILY [facility] Last Admin: 04/05/20 10:06 Dose: 50 mg Documented by: - Objective Vital Signs: Vital Signs Temperature 98.2 F 04/05/20 17:57 Pulse Rate 78 04/05/20 17:57 Respiratory Rate 16 04/05/20 17:57 Blood Pressure 139/81 04/05/20 17:57 O2 Sat by Pulse Oximetry (%) 98 04/05/20 15:00 Constitutional: Yes: No Distress HENT: Yes: Atraumatic Neck: Yes: Supple Cardiovascular: Yes: Regular Rate and Rhythm Respiratory: Yes: CTA Bilaterally Gastrointestinal: Yes: Normal Bowel Sounds Extremities: Yes: WNL Edema: No Peripheral Pulses WNL: Yes Neurological: Yes: Alert, Oriented Labs: CBC, BMP 04/05/20 17:15 04/05/20 07:25 INR, PTT INR 1.16 (0.83-1.09) H 04/04/20 13:33 Problem List - Problems (1) ESRD (end stage renal disease) Assessment/Plan: on PD RENAL ON BOARD Code(s): N18.6 - END STAGE RENAL DISEASE (2) Anemia Assessment/Plan: S/P BLOOD TRANSFUSION H/H IMPROVED GETTING 4TH UNIT NOW WILL FU CBC Code(s): D64.9 - ANEMIA, UNSPECIFIED Qualifiers: Anemia type: unspecified type Qualified Code(s): D64.9 - Anemia, unspecified (3) HTN (hypertension) Assessment/Plan: on meds monitor Code(s): I10 - ESSENTIAL (PRIMARY) HYPERTENSION (4) Multiple myeloma Assessment/Plan: oncology consult reviewed Code(s): C90.00 - MULTIPLE MYELOMA NOT HAVING ACHIEVED REMISSION Qualifiers: Multiple myeloma remission status: unspecified Qualified Code(s): C90.00 - Multiple myeloma not having achieved remission (5) Thrombocytopenia Assessment/Plan: monitor Code(s): D69.6 - THROMBOCYTOPENIA, UNSPECIFIED Assessment/Plan COVERING FOR DR KYRIE ROMANO
--- NOTE | 2020-04-05 23:31 | PN ---
Teaching Attending Note Name of Resident: Benjamin Escoto ATTENDING PHYSICIAN STATEMENT I saw and evaluated the patient. I reviewed the resident's note and discussed the case with the resident. I agree with the resident's findings and plan as documented. ASSESSMENT AND PLAN: 44 y/o with past h/o IgG [place] MM 09/2011 s/p induction with good response then auto SCT in 2011, then relapsed 10/2013 andreceived CyBorD between 12/2013-04/2014 (total 9 doses) then hadTandem auto-SCT with melphalan conditioning 11/08/2014. He was onRevlimid maintenance of 15mg po QD x 21 days, 1 wk off. He was found with progression of disease, then enrolled on on Protocol [id number] ( pomalidomide/velcade) He chieved CR but per his request was taken off study after 29 cycles in 2017 Also s/p RT to Lt. acetabular lesion He was lost to follow up He has been on peritoeal dialysis for several months. Admitted for cytopenias--- Hgb 4.7/platelets 75,000 Got PRBCs with improvementin Hgb to 7.4 Will need to w/u progressive disease No s/s of infection PAtient to follow up closely with myeloma teama at [facility] for w/uof progressive disease nad management (? daratumumab/carfilzomib/dex) Discussed with patient need for close follow up and treatment givenhis progressive disease
[2020-04-06] MEDS: PERITONEAL DIALYSIS 2.5% SOLN 2,500 ML IP SCH ×3 (00:07→06:44)
[2020-04-06] MEDS: CALCIUM ACETATE 667 MG CAPSULE (FP) PO SCH ×2 (00:13→10:02)
[2020-04-06 02:15] VITALS: PULSE 71; TEMP 98.3
[2020-04-06 07:58] VITALS: BP 135/79
[2020-04-06] MEDS: LOSARTAN POTASSIUM 50 MG TABLET (FP) PO SCH (10:02)
--- NOTE | 2020-04-06 11:28 | PN ---
Physical Exam: SUBJECTIVE: Patient seen and examined. Pt. denies any acute complaints. Pt. states he was able to get this dialysis fluid exchanged and states he would like to continue his work up at [facility]. He states that he stopped his therapy because he enrolled in a 6 month trial and participated for 8 months so he thought it was a good time to stop. Pt. refused AM bloodwork. OBJECTIVE: Vital Signs Period Temp Pulse Resp BP Sys/Lantigua Pulse Ox Last 24 Hr 98 F-98.3 F 71-86 16-20 135-151/79-96 98-99 GENERAL: Awake, alert, and fully oriented, in no acute distress. HEAD: Normal with no signs of trauma. EYES: Extraocular movements intact, sclera anicteric, conjunctiva clear. No lid lag. EARS, NOSE, THROAT:Moist mucous membranes. LUNGS: Breath sounds equal, clear to auscultation bilaterally. No wheezes, and no crackles. No accessory muscle use. HEART: Regular rate and rhythm, normal S1 and S2 without murmur ABDOMEN: Soft, nontender, not distended, normoactive bowel sounds, no guarding, no rebound, no masses. PD catheter seen. UPPER EXTREMITIES: warm, well-perfused. No cyanosis. LOWER EXTREMITIES: 2+ dorsal pedal pulses, warm, well-perfused. No calf tenderness. No peripheral edema. NEUROLOGICAL: Normal speech. Gait not assessed. PSYCHIATRIC: Cooperative. Good eye contact. Appropriate mood and affect. SKIN: Warm, dry, normal turgor Laboratory Results - last 24 hr 04/04/20 04/04/20 04/05/20 13:33 13:35 17:15 WBC 4.9 RBC 2.37 L Hgb 7.4 L Hct 21.7 L D MCV 91.5 MCH 31.3 MCHC 34.2 RDW 18.4 H Plt Count 61 L MPV 8.6 D COVID-19 (VESTA) Not detected Blood Type A POSITIVE Antibody Screen Negative Antibody Identification Cancelled Antigen Identification Cancelled Crossmatch See Detail Active Medications Generic Name Dose Route Start Last Admin Trade Name Freq PRN Reason Stop Dose Admin Calcium Acetate 667 mg 04/05/20 08:00 04/06/20 10:02 Phoslo - PO 667 mg TIDCM MARRY Administration Peritoneal Dialysis Solution 2,500 mls @ 5,000 mls/hr 04/05/20 18:00 04/06/20 06:44 Dianeal 2.5% IP 5,000 mls/hr Q6H MARRY Administration Protocol Losartan Potassium 50 mg 04/05/20 10:00 04/06/20 10:02 Cozaar - PO 50 mg DAILY MARRY Administration ASSESSMENT/PLAN: Pt. is a 44 y.o. M w/ PMHx. of ESRD(on Peritoneal Dialysis since September), HTN, and Multiple Myeloma (s/p chemotherapy, RT- last treated in May, and autograft bone marrow transplant in 2013) presents for anemia and thrombocytopenia. #Multiple Myeloma Recurrence? Pt. was diagnosed in 2011. Pt. has elevated total protein, low albumin, normal corrected calcium As Pt. has already had autograft transplant, this indicates that he was already recalcitrant to conventional therapy c/w Epogen daily; transfuse to goal of Hgb: 8 Pt. has history of not tolerating Velcade and disease progression on Lenalinomide. Pt. had complete remission on Pomalidomide and Dexamethsone before requesting to stop in 2016. Can restart and add Carflizomib and/or Darutumunab. Pt. states that he would like to continue his workup at [facility]. Visit type - Emergency Visit Emergency Visit: Yes ED Registration Date: 04/04/20 Care time: The patient presented to the Emergency Department on the above date and was hospitalized for further evaluation of their emergent condition. - New Patient This patient is new to me today: No - Critical Care Critical Care patient: No - Discharge Referral Referred to [facility] No ATTENDING PHYSICIAN STATEMENT I saw and evaluated the patient. I reviewed the resident's note and discussed the case with the resident. I agree with the resident's findings and plan as documented. SUBJECTIVE: OBJECTIVE: ASSESSMENT AND PLAN:
--- NOTE | 2020-04-11 23:08 | DS ---
Physical Examination Vital Signs: Vital Signs Temperature 98.3 F 04/05/20 21:00 Pulse Rate 71 04/06/20 05:00 Respiratory Rate 20 04/06/20 09:00 Blood Pressure 135/79 04/06/20 05:00 O2 Sat by Pulse Oximetry (%) 99 04/06/20 09:00 Labs: CBC, BMP 04/05/20 17:15 04/05/20 07:25 Discharge Summary Problems reviewed: Yes Reason For Visit: ANEMIA Anemia Multiple myeloma ESRD on peritoneal dialysis HTN Hospital Course: Pt. is a 44 y.o. M w/ PMHx. of ESRD(on Peritoneal Dialysis since September), HTN, and Multiple Myeloma (s/p chemotherapy, RT- last treated in May, and autograft bone marrow transplant in 2013) presents for anemia and thrombocytopenia. Initially in the ER pt was found to have a Hgb of 4.7 and was given multiple blood transfusions and Hgb increased to over 7. Pt was also seen by renal bc of his ESRD and had peritoneal dialysis. Pt was found to be hemoccult negative. Pt was seen by heme/onco however pt than signed out AMA and stated that he would follow up with his physicians at [facility] Condition: Improved - Instructions Referrals: Ney Lerner MD [Primary Care Provider] - Disposition: AGAINST MEDICAL ADVICE - Home Medications Comprehensive Discharge Medication List: Ambulatory Orders Losartan Potassium [Cozaar -] 50 mg PO DAILY 06/23/18 Amlodipine Besylate [Norvasc -] 10 mg PO DAILY 10/29/19 Calcium Acetate 667 mg PO TID 04/04/20 Epoetin Tl [Epogen] 2,000 unit IJ DAILY 04/04/20
== END 2020-04-06 12:30 | disposition left against medical advice (07) | DRG 840 ==
LOC: SUPCPDRO 12:52 → JER 12:52 → JERBED 16:29 → JICU 04-05 14:35
PROVIDERS: ADMIT Internal Medicine; ATTEND Internal Medicine
PROC: 30233N1 Transfusion of Nonautologous Red Blood Cells into Peripheral Vein, Percutaneous Approach (ICD-10-PCS; principal; 2020-04-04)
PROC: 3E1M39Z Irrigation of Peritoneal Cavity using Dialysate, Percutaneous Approach (ICD-10-PCS; 2020-04-04)
DX: C90.00 Multiple myeloma not having achieved remission (principal); N18.6 End stage renal disease; I12.0 Hypertensive chronic kidney disease with stage 5 chronic kidney disease or end stage renal disease; I10 Essential (primary) hypertension; Z99.2 Dependence on renal dialysis; E87.6 Hypokalemia; D63.1 Anemia in chronic kidney disease; D69.6 Thrombocytopenia, unspecified
CPT/HCPCS: 36415; 36430; 71046-TC-FY; 80053; 82272; 85025; 85027; 85610; 86850; 86870; 86900; 86901; 86902; 86922; 93005; 93010; 99285-25; P9058; U0003

== ENCOUNTER 2020-09-05 20:09 | Emergency (ER) | payer MEDICARE, OTHER ==
[2020-09-05 20:34] VITALS: BP 144/101; PULSE 103; TEMP 98.5; BMI 30.5
[2020-09-05] MEDS ORDERED: IBUPROFEN 600 MG TABLET (FP) PO ONE ×2 (21:28→21:31)
== END 2020-09-05 23:43 | disposition home or self-care (01) ==
LOC: FER 20:09
DX: R10.9 Unspecified abdominal pain (principal)
CPT/HCPCS: 74176-TC; 81003; 81015; 99284-25

== ENCOUNTER 2021-03-08 20:30 | Emergency (ER) | payer MEDICARE ==
[2021-03-08 20:45] VITALS: TEMP 98.7; BMI 24.0
[2021-03-08] MEDS ORDERED: SODIUM CHLORIDE 0.9% 500 ML INFUS.BAG IV ONE ×2 (21:39→21:46)
[2021-03-08 22:12] LABS: BASO % 0.3 % (0-2.0); HEMATOCRIT 22.2 % (35.4-49); HEMOGLOBIN 7.7 GM/dL (11.7-16.9); LYMPH % 56.1 % (8-40); MCH 31.6 pg (25.7-33.7); MCHC 34.9 g/dl (32.0-35.9); MEAN CELL VOLUME 90.7 fl (80-96); MEAN PLT VOLUME 9.6 fl (7.5-11.1); MONO % 16.5 % (3.8-10.2); NEUT % 27.1 % (42.8-82.8); PLATELET COUNT 38 K/MM3 (134-434); RBC 2.45 M/mm3 (4.00-5.60); RDW 18.1 % (11.9-15.9)
[2021-03-08 22:30] LABS: CHLORIDE 94 mmol/L (98-107); SODIUM 129 mmol/L (136-145)
[2021-03-08 22:32] LABS: CALCIUM 8.4 mg/dL (8.5-10.1)
[2021-03-08 22:33] LABS: ALBUMIN 1.9 g/dl (3.4-5.0); ANION GAP 9 MMOL/L (8-16); BLOOD UREA NITROGEN 39.1 mg/dL (7-18); CO2 27 mmol/L (21-32); GLUCOSE,RANDOM 87 mg/dL (74-106)
[2021-03-08 22:36] LABS: SGOT/AST 17 U/L (15-37); SGPT/ALT 10 U/L (13-61)
[2021-03-08 22:38] LABS: BILIRUBIN,TOTAL 0.3 mg/dL (0.2-1); TOT PROT 10.1 g/dl (6.4-8.2)
[2021-03-08 22:39] LABS: ALK PHOS 68 U/L (45-117); ANISOCYTOSIS 2+; MACROCYTOSIS 0; PLATELET ESTIMATE DECREASED; TARGET CELLS 1+
[2021-03-08 22:42] LABS: CREATININE 11.8 mg/dL (0.55-1.3)
[2021-03-08 23:07] VITALS: BP 125/84; PULSE 82
== END 2021-03-08 23:32 | disposition home or self-care (01) ==
LOC: JER 20:30
PROC: 3E033GC Introduction of Other Therapeutic Substance into Peripheral Vein, Percutaneous Approach (ICD-10-PCS; principal; 2021-03-08)
DX: R42 Dizziness and giddiness (principal)
CPT/HCPCS: 36415; 71045-TC-FY; 80053; 84484; 85025; 93005; 93010; 96374; 99284-25

== ENCOUNTER 2021-03-31 23:06 | Emergency (ER) | payer MEDICARE ==
[2021-03-31 23:24] VITALS: BMI 25.8
[2021-04-01] MEDS ORDERED: ACETAMINOPHEN 325 MG TABLET (FP) PO ONE (00:15)
[2021-04-01] MEDS ORDERED: ACETAMINOPHEN 1000 MG/100 ML VIAL (NON FORMULARY) IVPB ONE (00:34)
[2021-04-01 02:43] LABS: BASO % 0.3 % (0-2.0); EOS % 0.1 % (0-4.5); HEMATOCRIT 23.2 % (35.4-49); HEMOGLOBIN 8.1 GM/dL (11.7-16.9); LYMPH % 45.1 % (8-40); MCH 31.4 pg (25.7-33.7); MCHC 34.8 g/dl (32.0-35.9); MEAN CELL VOLUME 90.3 fl (80-96); MEAN PLT VOLUME 9.5 fl (7.5-11.1); MONO % 15.3 % (3.8-10.2); NEUT % 39.2 % (42.8-82.8); RBC 2.57 M/mm3 (4.00-5.60); RDW 18.1 % (11.9-15.9); WHITE BLOOD COUNT 3.3 K/mm3 (4.0-10.0)
[2021-04-01] MEDS ORDERED: ACETAMINOPHEN INJECTION 100 ML IVPB ONE (02:44)
[2021-04-01 03:01] LABS: CHLORIDE 95 mmol/L (98-107); SODIUM 131 mmol/L (136-145)
[2021-04-01 03:01] LABS: URINE APPEARANCE Clear; URINE BILIRUBIN Negative (NEGATIVE); URINE COLOR Yellow; URINE GLUCOSE (UA) Trace (NEGATIVE); URINE KETONE Negative (NEGATIVE); URINE LEUK ESTERASE Negative (NEGATIVE); URINE NITRITE Negative (NEGATIVE); URINE PROTEIN 3+ (NEGATIVE); URINE UROBILINOGEN 0.2 mg/dL (0.2-1.0)
[2021-04-01 03:02] LABS: PLATELET COUNT 29 10^3/uL (134-434)
[2021-04-01 03:03] LABS: CALCIUM 8.1 mg/dL (8.5-10.1)
[2021-04-01 03:04] LABS: ALBUMIN 1.7 g/dl (3.4-5.0); ANION GAP 9 MMOL/L (8-16); BLOOD UREA NITROGEN 55.5 mg/dL (7-18); CO2 27 mmol/L (21-32); GLUCOSE,RANDOM 79 mg/dL (74-106)
[2021-04-01 03:07] LABS: SGOT/AST 23 U/L (15-37); SGPT/ALT 12 U/L (13-61)
[2021-04-01 03:08] LABS: BILIRUBIN,TOTAL 0.3 mg/dL (0.2-1)
[2021-04-01 03:09] LABS: TOT PROT 9.5 g/dl (6.4-8.2)
[2021-04-01 03:10] LABS: ALK PHOS 60 U/L (45-117)
[2021-04-01 03:14] LABS: URINE RBC 12 /uL (0-23.9)
[2021-04-01 03:15] LABS: EPI CELLS 22 /uL (0-25.1); HYALINE CASTS 2 /uL (0-3.1); URINE BACTERIA 36 /uL (0-1359); URINE WBC 59 /uL (0-25.8)
[2021-04-01 06:39] LABS: ANISOCYTOSIS 2+; MACROCYTOSIS 0; PLATELET ESTIMATE DECREASED
[2021-04-01 07:40] VITALS: BP 154/100; PULSE 115; TEMP 98.2
== END 2021-04-01 05:15 | disposition short-term general hospital (02) ==
LOC: JER 23:06
PROC: 3E0333Z Introduction of Anti-inflammatory into Peripheral Vein, Percutaneous Approach (ICD-10-PCS; principal; 2021-03-31)
DX: R47.81 Slurred speech (principal); M54.5 Low back pain
CPT/HCPCS: 36415; 70450-TC; 72131-TC; 80053; 81003; 85025; 87086; 93005; 93010; 99285-25; C9803; J0131; U0003; U0005